=== PATIENT | female | born 1970 | race Caucasian/White ===

== ENCOUNTER 2020-02-12 14:35 | Inpatient (IN) | payer MEDICARE, OTHER ==
[2020-02-12] MEDS: Ascorbic Acid 500 mg Chewable Tablet PO SCH (21:18)
[2020-02-12] MEDS: busPIRone HCl 5 MG TAB PO SCH (21:18)
[2020-02-12] MEDS: Diazepam 5 MG TAB PO SCH (21:19)
[2020-02-12] MEDS: Gabapentin 300 MG CAP PO SCH (21:20)
[2020-02-12] MEDS: levETIRAcetam 500 MG TAB PO SCH (21:20)
[2020-02-12] MEDS: Senokot 8.6 MG TAB PO SCH (21:20)
[2020-02-12] MEDS: traZODone HCl 50 MG TAB PO SCH (21:21)
[2020-02-12] MEDS: HYDROcodone/Acetaminophen 10/325 mg Tablet PO SCH ×2 (23:53→23:59)
[2020-02-13] MEDS: Cyclobenzaprine 10 MG TAB PO PRN ×3 (00:41→14:37)
[2020-02-13 04:37] LABS: Bilirubin Negative (Negative); Blood, Urine Negative (Negative); Clarity Clear (Clear); Glucose, Urine (Dipstick) Negative (Negative); Ketone, Urine Negative (Negative); Leukocyte Small (Negative); Nitrite Negative (Negative); Protein, Urine (Dipstick) Negative (Neg-Trace); Specific Gravity, Urine 1.015 (1.005-1.030); pH, Urine 7.5 (5.0-9.0)
[2020-02-13 04:44] LABS: Bacteria/HPF None Seen HPF (None Seen); RBC/HPF 0-3 HPF (0-3); Squamous Epithelial 0-3 HPF (0-3); WBC/HPF 0-3 HPF (0-3)
[2020-02-13] MEDS: HYDROcodone/Acetaminophen 10/325 mg Tablet PO SCH ×3 (05:57→17:49)
[2020-02-13 06:08] LABS: Hemoglobin 9.2 g/dL (12.0-16.0); Platelet Count 383 thou/uL (130-400)
[2020-02-13 06:21] LABS: ALT (SGPT) 146 U/L (8-55); AST (SGOT) 127 U/L (5-34); Albumin 3.1 g/dL (3.5-5.0); Alkaline Phosphatase 239 U/L (40-110); Anion Gap 9 mmol/L (10-20); BUN (Urea Nitrogen) 12 mg/dL (7.0-18.7); Bilirubin, Total 1.8 mg/dL (0.2-1.2); Calc. Creatinine Clearance 121 mL/min (70-130); Calcium 8.5 mg/dL (7.8-10.44); Carbon Dioxide 28 mmol/L (22-29); Chloride 105 mmol/L (98-107); Estimated GFR-MDRD Greater than 90; Globulin 2.7 g/dL (2.4-3.5); Glucose 94 mg/dL (70-105); Potassium 4.2 mmol/L (3.5-5.1); Protein, Total 5.8 g/dL (6.0-8.3); Sodium 138 mmol/L (136-145)
[2020-02-13] MEDS: levETIRAcetam 500 MG TAB PO SCH ×2 (08:17→21:43)
[2020-02-13] MEDS: Diazepam 5 MG TAB PO SCH ×2 (08:17→21:40)
[2020-02-13] MEDS: busPIRone HCl 5 MG TAB PO SCH ×3 (08:18→21:42)
[2020-02-13] MEDS: Senokot 8.6 MG TAB PO SCH ×2 (08:18→21:43)
[2020-02-13] MEDS: Ferrous Sulfate 325 MG TAB PO SCH ×2 (08:18→17:04)
[2020-02-13] MEDS: Gabapentin 300 MG CAP PO SCH ×3 (08:19→21:42)
[2020-02-13] MEDS: Ascorbic Acid 500 mg Chewable Tablet PO SCH ×2 (08:19→21:41)
[2020-02-13] MEDS: Enoxaparin Sodium 40 MG/0.4 ML SYRINGE SC SCH (08:19)
[2020-02-13] MEDS: ATOMOXETINE HCL 40 MG PO SCH (08:20)
[2020-02-13] MEDS: Bisacodyl 10 MG SUPP PR SCH (08:20)
[2020-02-13] MEDS: Polyethylene Glycol 3350 17 GM Packet PO SCH (08:21)
[2020-02-13] MEDS: Nitrofurantoin Macrocrystal 50 MG CAP PO SCH (08:33)
[2020-02-13] MEDS: Ibuprofen 800 MG TAB PO PRN ×2 (11:01→21:40)
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
[2020-02-13] MEDS: traZODone HCl 50 MG TAB PO SCH (21:43)
[2020-02-13] MEDS: Emollient 15 oz bottle 450 ML, Triamcinolone Acetonide 200 MG TOP PRN (21:45)
[2020-02-13] MEDS ORDERED: Loratadine 10 MG TAB PO SCH (21:45)
[2020-02-14] MEDS: HYDROcodone/Acetaminophen 10/325 mg Tablet PO SCH ×5 (00:49→23:50)
[2020-02-14] MEDS: levETIRAcetam 500 MG TAB PO SCH ×2 (08:12→20:54)
[2020-02-14] MEDS: Cyclobenzaprine 10 MG TAB PO PRN ×3 (08:12→23:50)
[2020-02-14] MEDS: busPIRone HCl 5 MG TAB PO SCH ×3 (08:12→20:55)
[2020-02-14] MEDS: Ferrous Sulfate 325 MG TAB PO SCH ×2 (08:13→16:48)
[2020-02-14] MEDS: Diazepam 5 MG TAB PO SCH ×2 (08:13→20:55)
[2020-02-14] MEDS: Gabapentin 300 MG CAP PO SCH ×3 (08:13→20:54)
[2020-02-14] MEDS: Senokot 8.6 MG TAB PO SCH ×2 (08:13→21:03)
[2020-02-14] MEDS: Ascorbic Acid 500 mg Chewable Tablet PO SCH ×2 (08:13→20:55)
[2020-02-14] MEDS: Loratadine 10 MG TAB PO SCH (08:13)
[2020-02-14] MEDS: Nitrofurantoin Macrocrystal 50 MG CAP PO SCH (08:13)
[2020-02-14] MEDS: Bisacodyl 10 MG SUPP PR SCH (08:14)
[2020-02-14] MEDS: Enoxaparin Sodium 40 MG/0.4 ML SYRINGE SC SCH (08:15)
[2020-02-14] MEDS: ATOMOXETINE HCL 40 MG PO SCH (08:15)
[2020-02-14] MEDS: Polyethylene Glycol 3350 17 GM Packet PO SCH (08:16)
[2020-02-14] MEDS: Emollient 15 oz bottle 450 ML, Triamcinolone Acetonide 200 MG TOP PRN (10:25)
[2020-02-14] MEDS: Ibuprofen 800 MG TAB PO PRN (16:48)
[2020-02-14] MEDS: traZODone HCl 50 MG TAB PO SCH (20:53)
[2020-02-15] MEDS: Ibuprofen 800 MG TAB PO PRN ×2 (05:16→21:33)
[2020-02-15] MEDS: HYDROcodone/Acetaminophen 10/325 mg Tablet PO SCH ×4 (06:00→23:40)
[2020-02-15 06:22] LABS: Hemoglobin 9.3 g/dL (12.0-16.0)
[2020-02-15] MEDS: Senokot 8.6 MG TAB PO SCH ×2 (08:48→21:35)
[2020-02-15] MEDS: Nitrofurantoin Macrocrystal 50 MG CAP PO SCH (08:48)
[2020-02-15] MEDS: Ferrous Sulfate 325 MG TAB PO SCH ×2 (08:48→17:44)
[2020-02-15] MEDS: Loratadine 10 MG TAB PO SCH (08:49)
[2020-02-15] MEDS: busPIRone HCl 5 MG TAB PO SCH ×3 (08:49→21:34)
[2020-02-15] MEDS: Gabapentin 300 MG CAP PO SCH ×4 (08:49→21:41)
[2020-02-15] MEDS: Ascorbic Acid 500 mg Chewable Tablet PO SCH ×2 (08:49→21:34)
[2020-02-15] MEDS: Polyethylene Glycol 3350 17 GM Packet PO SCH (08:50)
[2020-02-15] MEDS: levETIRAcetam 500 MG TAB PO SCH ×2 (08:50→21:33)
[2020-02-15] MEDS: Enoxaparin Sodium 40 MG/0.4 ML SYRINGE SC SCH (08:50)
[2020-02-15] MEDS: Bisacodyl 10 MG SUPP PR SCH (08:51)
[2020-02-15] MEDS: Diazepam 5 MG TAB PO SCH ×2 (08:57→21:32)
[2020-02-15] MEDS: ATOMOXETINE HCL 40 MG PO SCH (08:58)
[2020-02-15] MEDS ORDERED: HYDROcodone/Acetaminophen 10/325 mg Tablet PO SCH (11:30)
[2020-02-15] MEDS ORDERED: HYDROcodone/Acetaminophen 10/325 mg Tablet PO PRN (12:00)
[2020-02-15] MEDS ORDERED: Triamcinolone 0.1% Cream 15 GM TUBE TOP PRN (13:11)
[2020-02-15] MEDS: Cyclobenzaprine 10 MG TAB PO PRN (16:03)
[2020-02-15] MEDS: traZODone HCl 50 MG TAB PO SCH (21:33)
[2020-02-15] MEDS: hydrOXYzine 25 MG TAB PO PRN (21:38)
[2020-02-15] MEDS: Emollient 15 oz bottle 450 ML, Triamcinolone Acetonide 200 MG TOP PRN (21:41)
[2020-02-16] MEDS: HYDROcodone/Acetaminophen 10/325 mg Tablet PO SCH ×3 (05:14→18:09)
[2020-02-16 05:54] LABS: Hemoglobin 9.2 g/dL (12.0-16.0); Platelet Count 654 thou/uL (130-400)
[2020-02-16] MEDS: busPIRone HCl 5 MG TAB PO SCH ×3 (08:12→21:59)
[2020-02-16] MEDS: Nitrofurantoin Macrocrystal 50 MG CAP PO SCH (08:13)
[2020-02-16] MEDS: Ascorbic Acid 500 mg Chewable Tablet PO SCH ×2 (08:13→21:59)
[2020-02-16] MEDS: levETIRAcetam 500 MG TAB PO SCH ×2 (08:13→22:00)
[2020-02-16] MEDS: Diazepam 5 MG TAB PO SCH ×2 (08:13→21:59)
[2020-02-16] MEDS: Senokot 8.6 MG TAB PO SCH ×3 (08:13→22:02)
[2020-02-16] MEDS: ATOMOXETINE HCL 40 MG PO SCH (08:14)
[2020-02-16] MEDS: Gabapentin 300 MG CAP PO SCH ×3 (08:14→22:01)
[2020-02-16] MEDS: Ferrous Sulfate 325 MG TAB PO SCH ×2 (08:14→16:59)
[2020-02-16] MEDS: Enoxaparin Sodium 40 MG/0.4 ML SYRINGE SC SCH (08:14)
[2020-02-16] MEDS: Cyclobenzaprine 10 MG TAB PO PRN ×2 (08:14→15:22)
[2020-02-16] MEDS: hydrOXYzine 25 MG TAB PO PRN (09:59)
[2020-02-16] MEDS: HYDROcodone/Acetaminophen 10/325 mg Tablet PO PRN ×2 (09:59→16:58)
[2020-02-16] MEDS: traZODone HCl 50 MG TAB PO SCH (22:02)
[2020-02-16] MEDS: Ibuprofen 800 MG TAB PO PRN (22:03)
[2020-02-16] MEDS: Emollient 15 oz bottle 450 ML, Triamcinolone Acetonide 200 MG TOP PRN (22:08)
[2020-02-17] MEDS: HYDROcodone/Acetaminophen 10/325 mg Tablet PO PRN ×4 (00:58→20:54)
[2020-02-17] MEDS: Cyclobenzaprine 10 MG TAB PO PRN ×2 (05:08→15:40)
[2020-02-17] MEDS: busPIRone HCl 5 MG TAB PO SCH ×2 (07:54→15:31)
[2020-02-17] MEDS: levETIRAcetam 500 MG TAB PO SCH ×2 (07:55→20:53)
[2020-02-17] MEDS: Nitrofurantoin Macrocrystal 50 MG CAP PO SCH (07:56)
[2020-02-17] MEDS: Enoxaparin Sodium 40 MG/0.4 ML SYRINGE SC SCH (07:56)
[2020-02-17] MEDS: Diazepam 5 MG TAB PO SCH ×2 (07:56→20:52)
[2020-02-17] MEDS: Ferrous Sulfate 325 MG TAB PO SCH ×2 (07:56→16:56)
[2020-02-17] MEDS: Senokot 8.6 MG TAB PO SCH ×2 (07:56→20:53)
[2020-02-17] MEDS: Ascorbic Acid 500 mg Chewable Tablet PO SCH ×2 (07:57→20:52)
[2020-02-17] MEDS: ATOMOXETINE HCL 40 MG PO SCH (07:58)
[2020-02-17] MEDS ORDERED: Hyoscyamine Sulfate SL 0.125 mg Tablet SL PRN (17:26)
[2020-02-17] MEDS: traZODone HCl 50 MG TAB PO SCH (20:53)
[2020-02-17] MEDS: Betamethasone 0.1% Cream 15 GM TUBE TOP PRN (20:56)
[2020-02-17] MEDS: Emollient 15 oz bottle 450 ML, Triamcinolone Acetonide 200 MG TOP PRN (20:57)
[2020-02-18] MEDS: Cyclobenzaprine 10 MG TAB PO PRN ×3 (06:08→23:10)
[2020-02-18] MEDS: Diazepam 5 MG TAB PO SCH ×2 (07:26→20:06)
[2020-02-18] MEDS: Senokot 8.6 MG TAB PO SCH ×2 (07:26→20:06)
[2020-02-18] MEDS: levETIRAcetam 500 MG TAB PO SCH ×2 (07:27→20:06)
[2020-02-18] MEDS: Nitrofurantoin Macrocrystal 50 MG CAP PO SCH (07:27)
[2020-02-18] MEDS: HYDROcodone/Acetaminophen 10/325 mg Tablet PO PRN ×3 (07:27→20:11)
[2020-02-18] MEDS: Ferrous Sulfate 325 MG TAB PO SCH ×2 (07:27→16:56)
[2020-02-18] MEDS: Ascorbic Acid 500 mg Chewable Tablet PO SCH ×2 (07:28→20:06)
[2020-02-18] MEDS: Enoxaparin Sodium 40 MG/0.4 ML SYRINGE SC SCH (07:28)
[2020-02-18] MEDS: ATOMOXETINE HCL 40 MG PO SCH (08:32)
[2020-02-18] MEDS: hydrOXYzine 25 MG TAB PO PRN (11:05)
[2020-02-18] MEDS: traZODone HCl 50 MG TAB PO SCH (20:05)
[2020-02-18 20:06] LABS: Anion Gap 13 mmol/L (10-20); BUN (Urea Nitrogen) 11 mg/dL (7.0-18.7); Carbon Dioxide 27 mmol/L (22-29); Chloride 105 mmol/L (98-107); Potassium 3.9 mmol/L (3.5-5.1); Sodium 141 mmol/L (136-145)
[2020-02-18 20:07] LABS: ALT (SGPT) 113 U/L (8-55); AST (SGOT) 64 U/L (5-34); Albumin 3.5 g/dL (3.5-5.0); Alkaline Phosphatase 408 U/L (40-110); Bilirubin, Total 1.2 mg/dL (0.2-1.2); Calc. Creatinine Clearance 121 mL/min (70-130); Calcium 9.1 mg/dL (7.8-10.44); Estimated GFR-MDRD Greater than 90; Globulin 3.1 g/dL (2.4-3.5); Glucose 103 mg/dL (70-105); Protein, Total 6.6 g/dL (6.0-8.3)
[2020-02-18 20:20] LABS: Band 4 % (5-11); Eosinophils 6 % (0-10); Hemoglobin 9.1 g/dL (12.0-16.0); Lymphocytes 18 % (21-51); MDiff Complete? YES; Mean Corpuscular HGB CONC 30.6 g/dL (32.0-36.0); Mean Corpuscular Hemoglobin 30.4 pg (27.0-31.0); Mean Corpuscular Volume 99.6 fL (78.0-98.0); Mean Platelet Volume 5.4 fL (7.4-10.4); Monocytes 4 % (0-10); Myelocyte 1 % (0-0); Neutrophil 65 % (42-75); Platelet Count 790 thou/uL (130-400); Platelet Morphology Comment Appears Increased; RBC Distribution Width 16.6 % (11.5-14.5); RBC Morphology Normal; Reactive Lymphocytes 2 % (0-10); White Blood Cell (WBC) Count 6.2 thou/uL (4.8-10.8)
[2020-02-18 21:35] LABS: Bilirubin Negative (Negative); Blood, Urine Negative (Negative); Clarity Clear (Clear); Glucose, Urine (Dipstick) Negative (Negative); Ketone, Urine Negative (Negative); Leukocyte Negative (Negative); Nitrite Negative (Negative); Protein, Urine (Dipstick) Negative (Neg-Trace); Specific Gravity, Urine 1.015 (1.005-1.030)
[2020-02-18 21:42] LABS: Urine Culture Reflex No No
[2020-02-18 21:47] LABS: Bacteria/HPF Rare-Few HPF (None Seen); RBC/HPF 0-3 HPF (0-3); Squamous Epithelial 0-3 HPF (0-3); WBC/HPF 0-3 HPF (0-3)
[2020-02-18] MEDS: Melatonin 3 MG TAB PO PRN (23:10)
[2020-02-19] MEDS: HYDROcodone/Acetaminophen 10/325 mg Tablet PO PRN ×3 (02:44→14:28)
[2020-02-19] MEDS: Nitrofurantoin Macrocrystal 50 MG CAP PO SCH (09:03)
[2020-02-19] MEDS: Ferrous Sulfate 325 MG TAB PO SCH ×2 (09:03→17:18)
[2020-02-19] MEDS: Senokot 8.6 MG TAB PO SCH ×2 (09:03→20:19)
[2020-02-19] MEDS: Ascorbic Acid 500 mg Chewable Tablet PO SCH ×2 (09:03→20:17)
[2020-02-19] MEDS: Diazepam 5 MG TAB PO SCH ×2 (09:03→20:16)
[2020-02-19] MEDS: levETIRAcetam 500 MG TAB PO SCH ×2 (09:04→20:17)
[2020-02-19] MEDS: Cyclobenzaprine 10 MG TAB PO PRN ×2 (09:04→21:50)
[2020-02-19] MEDS: Enoxaparin Sodium 40 MG/0.4 ML SYRINGE SC SCH (09:04)
[2020-02-19] MEDS: ATOMOXETINE HCL 40 MG PO SCH (09:05)
[2020-02-19 14:24] LABS: SARS-CoV-2 MS2 Positive; SARS-CoV-2 N Gene Negative; SARS-CoV-2 S Gene Negative; SARS-CoV-2 by NAA Not Detected (NotDetected); SARS-CoV-2 orf1ab Negative
[2020-02-19] MEDS: Ibuprofen 800 MG TAB PO PRN (14:28)
[2020-02-19] MEDS: traZODone HCl 50 MG TAB PO SCH (20:18)
[2020-02-20] MEDS: HYDROcodone/Acetaminophen 10/325 mg Tablet PO PRN ×3 (02:45→14:35)
[2020-02-20] MEDS: Ibuprofen 800 MG TAB PO PRN ×2 (06:05→19:26)
[2020-02-20] MEDS: levETIRAcetam 500 MG TAB PO SCH ×2 (08:33→20:54)
[2020-02-20] MEDS: Senokot 8.6 MG TAB PO SCH ×2 (08:33→20:57)
[2020-02-20] MEDS: Ascorbic Acid 500 mg Chewable Tablet PO SCH ×2 (08:33→20:56)
[2020-02-20] MEDS: Nitrofurantoin Macrocrystal 50 MG CAP PO SCH (08:33)
[2020-02-20] MEDS: Diazepam 5 MG TAB PO SCH ×2 (08:33→20:53)
[2020-02-20] MEDS: Ferrous Sulfate 325 MG TAB PO SCH ×2 (08:33→17:17)
[2020-02-20] MEDS: ATOMOXETINE HCL 40 MG PO SCH (08:34)
[2020-02-20] MEDS: Enoxaparin Sodium 40 MG/0.4 ML SYRINGE SC SCH (08:35)
[2020-02-20] MEDS: hydrOXYzine 25 MG TAB PO PRN (10:44)
[2020-02-20] MEDS: Cyclobenzaprine 10 MG TAB PO PRN (13:18)
[2020-02-20] MEDS: traZODone HCl 50 MG TAB PO SCH (20:55)
[2020-02-21] MEDS: HYDROcodone/Acetaminophen 10/325 mg Tablet PO PRN ×4 (00:11→20:47)
[2020-02-21] MEDS: Ibuprofen 800 MG TAB PO PRN ×2 (02:58→17:05)
[2020-02-21] MEDS: Cyclobenzaprine 10 MG TAB PO PRN ×3 (02:59→23:35)
[2020-02-21] MEDS: ATOMOXETINE HCL 40 MG PO SCH (08:50)
[2020-02-21] MEDS: Ascorbic Acid 500 mg Chewable Tablet PO SCH ×2 (08:52→20:45)
[2020-02-21] MEDS: Senokot 8.6 MG TAB PO SCH ×2 (08:52→20:47)
[2020-02-21] MEDS: Nitrofurantoin Macrocrystal 50 MG CAP PO SCH (08:52)
[2020-02-21] MEDS: Ferrous Sulfate 325 MG TAB PO SCH ×2 (08:52→17:05)
[2020-02-21] MEDS: Diazepam 5 MG TAB PO SCH ×2 (08:52→20:45)
[2020-02-21] MEDS: hydrOXYzine 25 MG TAB PO PRN ×2 (08:52→20:55)
[2020-02-21] MEDS: levETIRAcetam 500 MG TAB PO SCH ×2 (08:53→20:46)
[2020-02-21] MEDS: Enoxaparin Sodium 40 MG/0.4 ML SYRINGE SC SCH (08:54)
[2020-02-21] MEDS: Nystatin Cream 15 GM TUBE TOP SCH (20:46)
[2020-02-21] MEDS: traZODone HCl 50 MG TAB PO SCH (20:47)
[2020-02-22] MEDS: HYDROcodone/Acetaminophen 10/325 mg Tablet PO PRN ×3 (07:23→19:49)
[2020-02-22] MEDS: Ferrous Sulfate 325 MG TAB PO SCH ×2 (07:56→17:00)
[2020-02-22] MEDS: Diazepam 5 MG TAB PO SCH ×2 (08:35→21:09)
[2020-02-22] MEDS: Ascorbic Acid 500 mg Chewable Tablet PO SCH ×2 (08:35→21:08)
[2020-02-22] MEDS: Enoxaparin Sodium 40 MG/0.4 ML SYRINGE SC SCH (08:37)
[2020-02-22] MEDS: levETIRAcetam 500 MG TAB PO SCH ×2 (08:38→21:06)
[2020-02-22] MEDS: Nitrofurantoin Macrocrystal 50 MG CAP PO SCH (08:39)
[2020-02-22] MEDS: Nystatin Cream 15 GM TUBE TOP SCH ×2 (08:39→21:30)
[2020-02-22] MEDS: Senokot 8.6 MG TAB PO SCH ×2 (08:40→21:12)
[2020-02-22] MEDS: ATOMOXETINE HCL 40 MG PO SCH (08:43)
[2020-02-22] MEDS: Cyclobenzaprine 10 MG TAB PO PRN ×2 (10:37→17:41)
[2020-02-22] MEDS: Ibuprofen 800 MG TAB PO PRN ×2 (11:20→21:28)
[2020-02-22] MEDS: hydrOXYzine 25 MG TAB PO PRN (21:07)
[2020-02-22] MEDS: traZODone HCl 50 MG TAB PO SCH (21:12)
[2020-02-22] MEDS ORDERED: Ibuprofen 800 MG TAB ONE (21:25)
[2020-02-23] MEDS: HYDROcodone/Acetaminophen 10/325 mg Tablet PO PRN ×4 (02:28→20:57)
[2020-02-23] MEDS: levETIRAcetam 500 MG TAB PO SCH ×2 (08:03→20:59)
[2020-02-23] MEDS: Senokot 8.6 MG TAB PO SCH ×2 (08:03→20:59)
[2020-02-23] MEDS: Ferrous Sulfate 325 MG TAB PO SCH ×2 (08:03→17:05)
[2020-02-23] MEDS: Ibuprofen 800 MG TAB PO PRN ×2 (08:04→19:13)
[2020-02-23] MEDS: Diazepam 5 MG TAB PO SCH ×2 (08:05→21:01)
[2020-02-23] MEDS: Nitrofurantoin Macrocrystal 50 MG CAP PO SCH (08:05)
[2020-02-23] MEDS: Enoxaparin Sodium 40 MG/0.4 ML SYRINGE SC SCH (08:05)
[2020-02-23] MEDS: Ascorbic Acid 500 mg Chewable Tablet PO SCH ×2 (08:05→20:59)
[2020-02-23] MEDS: ATOMOXETINE HCL 40 MG PO SCH (08:06)
[2020-02-23] MEDS: Nystatin Cream 15 GM TUBE TOP SCH ×2 (08:06→21:01)
[2020-02-23] MEDS: Cyclobenzaprine 10 MG TAB PO PRN ×2 (09:37→19:13)
[2020-02-23] MEDS ORDERED: HYDROcodone/Acetaminophen 10/325 mg Tablet PO SCH (14:45)
[2020-02-23] MEDS: hydrOXYzine 25 MG TAB PO PRN (17:07)
[2020-02-23] MEDS: traZODone HCl 50 MG TAB PO SCH (20:59)
[2020-02-24] MEDS: HYDROcodone/Acetaminophen 10/325 mg Tablet PO PRN ×4 (02:43→22:02)
[2020-02-24] MEDS: Cyclobenzaprine 10 MG TAB PO PRN ×3 (02:46→20:06)
[2020-02-24] MEDS: Ibuprofen 800 MG TAB PO PRN ×2 (05:24→13:56)
[2020-02-24] MEDS: Enoxaparin Sodium 40 MG/0.4 ML SYRINGE SC SCH (08:02)
[2020-02-24] MEDS: Ferrous Sulfate 325 MG TAB PO SCH ×2 (08:03→16:52)
[2020-02-24] MEDS: Senokot 8.6 MG TAB PO SCH ×2 (08:03→20:09)
[2020-02-24] MEDS: Diazepam 5 MG TAB PO SCH ×2 (08:03→20:14)
[2020-02-24] MEDS: levETIRAcetam 500 MG TAB PO SCH ×2 (08:03→20:07)
[2020-02-24] MEDS: Ascorbic Acid 500 mg Chewable Tablet PO SCH ×2 (08:04→20:08)
[2020-02-24] MEDS: Nitrofurantoin Macrocrystal 50 MG CAP PO SCH (08:04)
[2020-02-24] MEDS: Nystatin Cream 15 GM TUBE TOP SCH ×2 (08:04→20:15)
[2020-02-24] MEDS: ATOMOXETINE HCL 40 MG PO SCH (08:05)
[2020-02-24] MEDS: hydrOXYzine 25 MG TAB PO PRN (13:56)
[2020-02-24] MEDS: traZODone HCl 50 MG TAB PO SCH (20:08)
[2020-02-25] MEDS: Ibuprofen 800 MG TAB PO PRN ×2 (01:05→08:52)
[2020-02-25] MEDS: HYDROcodone/Acetaminophen 10/325 mg Tablet PO PRN ×4 (05:49→20:48)
[2020-02-25] MEDS: Diazepam 5 MG TAB PO SCH ×2 (08:51→20:37)
[2020-02-25] MEDS: Senokot 8.6 MG TAB PO SCH ×2 (08:51→20:36)
[2020-02-25] MEDS: Enoxaparin Sodium 40 MG/0.4 ML SYRINGE SC SCH (08:51)
[2020-02-25] MEDS: Nitrofurantoin Macrocrystal 50 MG CAP PO SCH (08:51)
[2020-02-25] MEDS: Nystatin Cream 15 GM TUBE TOP SCH ×2 (08:52→21:12)
[2020-02-25] MEDS: levETIRAcetam 500 MG TAB PO SCH ×2 (08:52→20:36)
[2020-02-25] MEDS: Cyclobenzaprine 10 MG TAB PO PRN ×2 (08:52→22:52)
[2020-02-25] MEDS: Ferrous Sulfate 325 MG TAB PO SCH ×2 (08:52→17:40)
[2020-02-25] MEDS: Ascorbic Acid 500 mg Chewable Tablet PO SCH ×2 (08:52→20:36)
[2020-02-25] MEDS: ATOMOXETINE HCL 40 MG PO SCH (08:54)
[2020-02-25] MEDS: traZODone HCl 50 MG TAB PO SCH (20:36)
[2020-02-26] MEDS: HYDROcodone/Acetaminophen 10/325 mg Tablet PO PRN ×5 (02:24→21:19)
[2020-02-26] MEDS: Cyclobenzaprine 10 MG TAB PO PRN ×2 (06:28→14:35)
[2020-02-26] MEDS: Ferrous Sulfate 325 MG TAB PO SCH ×2 (07:56→17:21)
[2020-02-26] MEDS: Diazepam 5 MG TAB PO SCH ×2 (09:49→21:17)
[2020-02-26] MEDS: Ascorbic Acid 500 mg Chewable Tablet PO SCH ×2 (09:49→21:16)
[2020-02-26] MEDS: Enoxaparin Sodium 40 MG/0.4 ML SYRINGE SC SCH (09:50)
[2020-02-26] MEDS: Nitrofurantoin Macrocrystal 50 MG CAP PO SCH (09:51)
[2020-02-26] MEDS: levETIRAcetam 500 MG TAB PO SCH ×2 (09:51→21:17)
[2020-02-26] MEDS: ATOMOXETINE HCL 40 MG PO SCH (09:52)
[2020-02-26] MEDS: Senokot 8.6 MG TAB PO SCH ×2 (09:53→21:18)
[2020-02-26] MEDS: Nystatin Cream 15 GM TUBE TOP SCH ×2 (09:53→21:18)
[2020-02-26] MEDS: Ibuprofen 800 MG TAB PO PRN (17:21)
[2020-02-26] MEDS: traZODone HCl 50 MG TAB PO SCH (21:18)
[2020-02-27] MEDS: Cyclobenzaprine 10 MG TAB PO PRN ×2 (01:01→16:32)
[2020-02-27] MEDS: Ibuprofen 800 MG TAB PO PRN (01:01)
[2020-02-27] MEDS: HYDROcodone/Acetaminophen 10/325 mg Tablet PO PRN ×4 (06:19→20:51)
[2020-02-27] MEDS: levETIRAcetam 500 MG TAB PO SCH ×2 (08:08→22:13)
[2020-02-27] MEDS: Nitrofurantoin Macrocrystal 50 MG CAP PO SCH (08:08)
[2020-02-27] MEDS: Senokot 8.6 MG TAB PO SCH ×2 (08:08→22:14)
[2020-02-27] MEDS: Ferrous Sulfate 325 MG TAB PO SCH ×2 (08:08→16:33)
[2020-02-27] MEDS: Ascorbic Acid 500 mg Chewable Tablet PO SCH ×2 (08:08→22:13)
[2020-02-27] MEDS: Diazepam 5 MG TAB PO SCH ×2 (08:09→22:14)
[2020-02-27] MEDS: Nystatin Cream 15 GM TUBE TOP SCH ×2 (08:09→22:17)
[2020-02-27] MEDS: Enoxaparin Sodium 40 MG/0.4 ML SYRINGE SC SCH (08:09)
[2020-02-27] MEDS: ATOMOXETINE HCL 40 MG PO SCH (08:10)
[2020-02-27] MEDS: traZODone HCl 50 MG TAB PO SCH (22:13)
[2020-02-28] MEDS: HYDROcodone/Acetaminophen 10/325 mg Tablet PO PRN ×6 (00:38→20:35)
[2020-02-28] MEDS: Cyclobenzaprine 10 MG TAB PO PRN ×2 (00:39→12:13)
[2020-02-28] MEDS: Ibuprofen 800 MG TAB PO PRN ×2 (04:34→16:16)
[2020-02-28] MEDS: Diazepam 5 MG TAB PO SCH ×2 (08:17→21:45)
[2020-02-28] MEDS: ATOMOXETINE HCL 40 MG PO SCH (08:17)
[2020-02-28] MEDS: Nitrofurantoin Macrocrystal 50 MG CAP PO SCH (08:18)
[2020-02-28] MEDS: Ferrous Sulfate 325 MG TAB PO SCH ×2 (08:18→16:15)
[2020-02-28] MEDS: levETIRAcetam 500 MG TAB PO SCH ×2 (08:18→21:44)
[2020-02-28] MEDS: Enoxaparin Sodium 40 MG/0.4 ML SYRINGE SC SCH (08:19)
[2020-02-28] MEDS: Ascorbic Acid 500 mg Chewable Tablet PO SCH ×2 (08:19→21:44)
[2020-02-28] MEDS: Senokot 8.6 MG TAB PO SCH ×2 (08:19→21:44)
[2020-02-28] MEDS: Nystatin Cream 15 GM TUBE TOP SCH ×2 (08:20→21:51)
[2020-02-28] MEDS: traZODone HCl 50 MG TAB PO SCH (21:44)
[2020-02-29] MEDS: Cyclobenzaprine 10 MG TAB PO PRN ×3 (00:36→16:38)
[2020-02-29] MEDS: HYDROcodone/Acetaminophen 10/325 mg Tablet PO PRN ×6 (00:36→20:42)
[2020-02-29] MEDS: Ibuprofen 800 MG TAB PO PRN (04:48)
[2020-02-29] MEDS: Ferrous Sulfate 325 MG TAB PO SCH ×2 (07:40→16:38)
[2020-02-29] MEDS: Diazepam 5 MG TAB PO SCH ×2 (08:43→21:38)
[2020-02-29] MEDS: Ascorbic Acid 500 mg Chewable Tablet PO SCH ×2 (08:43→21:38)
[2020-02-29] MEDS: Enoxaparin Sodium 40 MG/0.4 ML SYRINGE SC SCH (08:44)
[2020-02-29] MEDS: levETIRAcetam 500 MG TAB PO SCH ×2 (08:44→21:38)
[2020-02-29] MEDS: Nitrofurantoin Macrocrystal 50 MG CAP PO SCH (08:45)
[2020-02-29] MEDS: Nystatin Cream 15 GM TUBE TOP SCH ×2 (08:46→21:41)
[2020-02-29] MEDS: ATOMOXETINE HCL 40 MG PO SCH (08:46)
[2020-02-29] MEDS: Senokot 8.6 MG TAB PO SCH ×2 (08:47→21:39)
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
[2020-02-29] MEDS: traZODone HCl 50 MG TAB PO SCH (21:38)
[2020-03-01] MEDS: HYDROcodone/Acetaminophen 10/325 mg Tablet PO PRN ×6 (00:31→22:54)
[2020-03-01] MEDS: Cyclobenzaprine 10 MG TAB PO PRN ×3 (00:33→18:23)
[2020-03-01] MEDS: Ibuprofen 800 MG TAB PO PRN (04:33)
[2020-03-01] MEDS: Ferrous Sulfate 325 MG TAB PO SCH ×2 (08:11→16:43)
[2020-03-01] MEDS: Diazepam 5 MG TAB PO SCH ×2 (08:12→20:27)
[2020-03-01] MEDS: Ascorbic Acid 500 mg Chewable Tablet PO SCH ×2 (08:12→20:26)
[2020-03-01] MEDS: Enoxaparin Sodium 40 MG/0.4 ML SYRINGE SC SCH (08:13)
[2020-03-01] MEDS: levETIRAcetam 500 MG TAB PO SCH ×2 (08:13→20:27)
[2020-03-01] MEDS: Nystatin Cream 15 GM TUBE TOP SCH ×2 (08:14→20:28)
[2020-03-01] MEDS: ATOMOXETINE HCL 40 MG PO SCH (08:14)
[2020-03-01] MEDS: Nitrofurantoin Macrocrystal 50 MG CAP PO SCH (08:14)
[2020-03-01] MEDS: Senokot 8.6 MG TAB PO SCH ×2 (08:15→20:29)
[2020-03-01] MEDS: Polyethylene Glycol 3350 17 GM Packet PO PRN (11:33)
[2020-03-01] MEDS: traZODone HCl 50 MG TAB PO SCH (20:29)
[2020-03-02] MEDS: Polyethylene Glycol 3350 17 GM Packet PO PRN (00:27)
[2020-03-02] MEDS: Cyclobenzaprine 10 MG TAB PO PRN ×3 (05:52→22:23)
[2020-03-02] MEDS: HYDROcodone/Acetaminophen 10/325 mg Tablet PO PRN ×5 (05:53→22:22)
[2020-03-02] MEDS: levETIRAcetam 500 MG TAB PO SCH ×2 (08:15→20:58)
[2020-03-02] MEDS: Ferrous Sulfate 325 MG TAB PO SCH ×2 (08:16→17:04)
[2020-03-02] MEDS: Diazepam 5 MG TAB PO SCH ×2 (08:16→20:59)
[2020-03-02] MEDS: Ascorbic Acid 500 mg Chewable Tablet PO SCH ×2 (08:16→20:59)
[2020-03-02] MEDS: Nitrofurantoin Macrocrystal 50 MG CAP PO SCH (08:16)
[2020-03-02] MEDS: Enoxaparin Sodium 40 MG/0.4 ML SYRINGE SC SCH (08:17)
[2020-03-02] MEDS: Nystatin Cream 15 GM TUBE TOP SCH ×2 (08:17→21:00)
[2020-03-02] MEDS: Senokot 8.6 MG TAB PO SCH ×2 (08:17→20:59)
[2020-03-02] MEDS: ATOMOXETINE HCL 40 MG PO SCH (08:18)
[2020-03-02] MEDS: Ibuprofen 800 MG TAB PO PRN (10:08)
[2020-03-02] MEDS: traZODone HCl 50 MG TAB PO SCH (20:59)
[2020-03-03] MEDS: HYDROcodone/Acetaminophen 10/325 mg Tablet PO PRN ×6 (02:15→22:10)
[2020-03-03] MEDS: Cyclobenzaprine 10 MG TAB PO PRN ×3 (06:01→22:14)
[2020-03-03] MEDS: levETIRAcetam 500 MG TAB PO SCH ×2 (08:57→21:00)
[2020-03-03] MEDS: Ascorbic Acid 500 mg Chewable Tablet PO SCH ×2 (08:57→20:59)
[2020-03-03] MEDS: Senokot 8.6 MG TAB PO SCH ×2 (08:57→19:45)
[2020-03-03] MEDS: Diazepam 5 MG TAB PO SCH ×2 (08:58→21:05)
[2020-03-03] MEDS: Nitrofurantoin Macrocrystal 50 MG CAP PO SCH (08:58)
[2020-03-03] MEDS: Ferrous Sulfate 325 MG TAB PO SCH ×2 (08:58→16:51)
[2020-03-03] MEDS: Nystatin Cream 15 GM TUBE TOP SCH ×2 (08:59→21:01)
[2020-03-03] MEDS: Betamethasone 0.1% Cream 15 GM TUBE TOP PRN (08:59)
[2020-03-03] MEDS: ATOMOXETINE HCL 40 MG PO SCH (08:59)
[2020-03-03] MEDS: Enoxaparin Sodium 40 MG/0.4 ML SYRINGE SC SCH (08:59)
[2020-03-03] MEDS: Ibuprofen 800 MG TAB PO PRN (10:06)
[2020-03-03] MEDS: Polyethylene Glycol 3350 17 GM Packet PO PRN (19:52)
[2020-03-03] MEDS: traZODone HCl 50 MG TAB PO SCH (21:00)
[2020-03-04] MEDS: HYDROcodone/Acetaminophen 10/325 mg Tablet PO PRN ×6 (02:17→22:14)
[2020-03-04] MEDS: Cyclobenzaprine 10 MG TAB PO PRN ×3 (06:16→22:13)
[2020-03-04] MEDS: Ibuprofen 800 MG TAB PO PRN ×2 (08:48→19:47)
[2020-03-04] MEDS: Nitrofurantoin Macrocrystal 50 MG CAP PO SCH (08:48)
[2020-03-04] MEDS: Ferrous Sulfate 325 MG TAB PO SCH ×2 (08:48→17:43)
[2020-03-04] MEDS: Diazepam 5 MG TAB PO SCH ×2 (08:48→21:16)
[2020-03-04] MEDS: Senokot 8.6 MG TAB PO SCH ×2 (08:48→21:16)
[2020-03-04] MEDS: Ascorbic Acid 500 mg Chewable Tablet PO SCH ×2 (08:52→21:17)
[2020-03-04] MEDS: Enoxaparin Sodium 40 MG/0.4 ML SYRINGE SC SCH (08:52)
[2020-03-04] MEDS: levETIRAcetam 500 MG TAB PO SCH ×2 (08:52→21:15)
[2020-03-04] MEDS: Nystatin Cream 15 GM TUBE TOP SCH ×2 (08:53→21:18)
[2020-03-04] MEDS: ATOMOXETINE HCL 40 MG PO SCH (08:54)
[2020-03-04] MEDS: traZODone HCl 50 MG TAB PO SCH (21:15)
[2020-03-05] MEDS: HYDROcodone/Acetaminophen 10/325 mg Tablet PO PRN ×5 (02:15→23:15)
[2020-03-05] MEDS: Diazepam 5 MG TAB PO SCH ×2 (08:23→21:08)
[2020-03-05] MEDS: Nitrofurantoin Macrocrystal 50 MG CAP PO SCH (08:25)
[2020-03-05] MEDS: Ferrous Sulfate 325 MG TAB PO SCH ×2 (08:25→17:37)
[2020-03-05] MEDS: levETIRAcetam 500 MG TAB PO SCH ×2 (08:25→21:06)
[2020-03-05] MEDS: Enoxaparin Sodium 40 MG/0.4 ML SYRINGE SC SCH (08:25)
[2020-03-05] MEDS: Cyclobenzaprine 10 MG TAB PO PRN ×2 (08:25→23:18)
[2020-03-05] MEDS: Ascorbic Acid 500 mg Chewable Tablet PO SCH ×2 (08:25→21:10)
[2020-03-05] MEDS: Senokot 8.6 MG TAB PO SCH ×2 (08:25→21:07)
[2020-03-05] MEDS: Nystatin Cream 15 GM TUBE TOP SCH ×2 (08:26→21:16)
[2020-03-05] MEDS: ATOMOXETINE HCL 40 MG PO SCH (08:28)
[2020-03-05] MEDS: traZODone HCl 50 MG TAB PO SCH (21:09)
[2020-03-05] MEDS: Polyethylene Glycol 3350 17 GM Packet PO PRN (21:18)
[2020-03-06] MEDS: HYDROcodone/Acetaminophen 10/325 mg Tablet PO PRN ×4 (03:54→21:16)
[2020-03-06] MEDS: Ibuprofen 800 MG TAB PO PRN (05:53)
[2020-03-06] MEDS: Ferrous Sulfate 325 MG TAB PO SCH ×2 (09:37→17:08)
[2020-03-06] MEDS: levETIRAcetam 500 MG TAB PO SCH ×2 (09:38→21:15)
[2020-03-06] MEDS: Ascorbic Acid 500 mg Chewable Tablet PO SCH ×2 (09:38→21:15)
[2020-03-06] MEDS: Cyclobenzaprine 10 MG TAB PO PRN ×2 (09:38→21:16)
[2020-03-06] MEDS: Nitrofurantoin Macrocrystal 50 MG CAP PO SCH (09:38)
[2020-03-06] MEDS: Diazepam 5 MG TAB PO SCH ×2 (09:39→21:15)
[2020-03-06] MEDS: Enoxaparin Sodium 40 MG/0.4 ML SYRINGE SC SCH (09:40)
[2020-03-06] MEDS: Senokot 8.6 MG TAB PO SCH ×2 (09:45→21:14)
[2020-03-06] MEDS: ATOMOXETINE HCL 40 MG PO SCH (09:50)
[2020-03-06] MEDS: Nystatin Cream 15 GM TUBE TOP SCH ×2 (09:51→21:28)
[2020-03-06] MEDS: traZODone HCl 50 MG TAB PO SCH (21:15)
[2020-03-07] MEDS: HYDROcodone/Acetaminophen 10/325 mg Tablet PO PRN ×6 (01:09→23:56)
[2020-03-07] MEDS: Cyclobenzaprine 10 MG TAB PO PRN ×2 (05:44→14:31)
[2020-03-07 07:27] LABS: #Basophils 0.1 thou/uL (0.0-0.2); #Eosinphils 0.7 thou/uL (0.0-0.7); #Lymphocytes 1.2 thou/uL (1.20-3.40); #Monocytes 0.4 thou/uL (0.11-0.59); #Neutrophils 2.4 thou/uL (1.40-6.50); %Basophils 1.7 % (0.0-1.0); %Lymphocytes 24.8 % (21.0-51.0); %Monocytes 9.2 % (0.0-10.0); %Neutrophils 50.4 % (42.0-75.0); Hemoglobin 10.5 g/dL (12.0-16.0); Mean Corpuscular HGB CONC 32.6 g/dL (32.0-36.0); Mean Corpuscular Hemoglobin 31.3 pg (27.0-31.0); Platelet Count 219 thou/uL (130-400); Red Blood Cell (RBC) Count 3.36 mill/uL (4.20-5.40); White Blood Cell (WBC) Count 4.8 thou/uL (4.8-10.8)
[2020-03-07] MEDS: Ferrous Sulfate 325 MG TAB PO SCH ×2 (08:32→17:47)
[2020-03-07] MEDS: Diazepam 5 MG TAB PO SCH ×2 (08:33→21:12)
[2020-03-07] MEDS: Ascorbic Acid 500 mg Chewable Tablet PO SCH ×2 (08:33→21:11)
[2020-03-07] MEDS: levETIRAcetam 500 MG TAB PO SCH ×2 (08:34→21:12)
[2020-03-07] MEDS: Enoxaparin Sodium 40 MG/0.4 ML SYRINGE SC SCH (08:34)
[2020-03-07] MEDS: ATOMOXETINE HCL 40 MG PO SCH (08:35)
[2020-03-07] MEDS: Nystatin Cream 15 GM TUBE TOP SCH ×2 (08:35→21:13)
[2020-03-07] MEDS: Nitrofurantoin Macrocrystal 50 MG CAP PO SCH (08:35)
[2020-03-07] MEDS: Senokot 8.6 MG TAB PO SCH ×2 (08:36→21:11)
[2020-03-07] MEDS: traZODone HCl 50 MG TAB PO SCH (21:11)
[2020-03-07] MEDS: Ibuprofen 800 MG TAB PO PRN (23:56)
[2020-03-08] MEDS: Melatonin 3 MG TAB PO PRN ×2 (00:02→20:07)
[2020-03-08] MEDS: HYDROcodone/Acetaminophen 10/325 mg Tablet PO PRN ×4 (07:41→20:48)
[2020-03-08] MEDS: Cyclobenzaprine 10 MG TAB PO PRN ×2 (07:42→16:38)
[2020-03-08] MEDS: Ascorbic Acid 500 mg Chewable Tablet PO SCH ×2 (08:28→20:11)
[2020-03-08] MEDS: Senokot 8.6 MG TAB PO SCH ×2 (08:28→20:10)
[2020-03-08] MEDS: Diazepam 5 MG TAB PO SCH ×2 (08:28→20:07)
[2020-03-08] MEDS: Nitrofurantoin Macrocrystal 50 MG CAP PO SCH (08:28)
[2020-03-08] MEDS: levETIRAcetam 500 MG TAB PO SCH ×2 (08:28→20:10)
[2020-03-08] MEDS: ATOMOXETINE HCL 40 MG PO SCH (08:29)
[2020-03-08] MEDS: Ferrous Sulfate 325 MG TAB PO SCH ×2 (08:29→16:38)
[2020-03-08] MEDS: Enoxaparin Sodium 40 MG/0.4 ML SYRINGE SC SCH (08:30)
[2020-03-08] MEDS: Nystatin Cream 15 GM TUBE TOP SCH ×2 (08:30→20:11)
[2020-03-08] MEDS: Ibuprofen 800 MG TAB PO PRN ×2 (11:45→20:07)
[2020-03-08] MEDS: Polyethylene Glycol 3350 17 GM Packet PO PRN (20:08)
[2020-03-08] MEDS: traZODone HCl 50 MG TAB PO SCH (20:09)
[2020-03-09] MEDS: HYDROcodone/Acetaminophen 10/325 mg Tablet PO PRN ×5 (01:05→21:13)
[2020-03-09] MEDS: Cyclobenzaprine 10 MG TAB PO PRN ×3 (01:06→17:15)
[2020-03-09] MEDS: levETIRAcetam 500 MG TAB PO SCH ×2 (08:24→20:00)
[2020-03-09] MEDS: Senokot 8.6 MG TAB PO SCH ×2 (08:25→20:00)
[2020-03-09] MEDS: Diazepam 5 MG TAB PO SCH ×2 (08:25→19:59)
[2020-03-09] MEDS: Ferrous Sulfate 325 MG TAB PO SCH ×2 (08:26→17:15)
[2020-03-09] MEDS: Nitrofurantoin Macrocrystal 50 MG CAP PO SCH (08:26)
[2020-03-09] MEDS: Ascorbic Acid 500 mg Chewable Tablet PO SCH ×2 (08:26→20:00)
[2020-03-09] MEDS: ATOMOXETINE HCL 40 MG PO SCH (08:27)
[2020-03-09] MEDS: Enoxaparin Sodium 40 MG/0.4 ML SYRINGE SC SCH (08:27)
[2020-03-09] MEDS: Nystatin Cream 15 GM TUBE TOP SCH ×2 (08:28→20:01)
[2020-03-09] MEDS: Ibuprofen 800 MG TAB PO PRN (09:27)
[2020-03-09] MEDS: Polyethylene Glycol 3350 17 GM Packet PO PRN (17:18)
[2020-03-09] MEDS ORDERED: DULoxetine 30 MG CAP PO SCH (18:30)
[2020-03-09] MEDS: Lidocaine 5% Patch TD SCH (19:59)
[2020-03-09] MEDS: Polyethylene Glycol 3350 17 GM Packet PO SCH (20:00)
[2020-03-09] MEDS: traZODone HCl 50 MG TAB PO SCH (20:01)
[2020-03-10] MEDS: Melatonin 3 MG TAB PO PRN (01:17)
[2020-03-10] MEDS: HYDROcodone/Acetaminophen 10/325 mg Tablet PO PRN ×5 (01:17→22:24)
[2020-03-10] MEDS: Cyclobenzaprine 10 MG TAB PO PRN ×3 (01:17→18:09)
[2020-03-10] MEDS ORDERED: DULoxetine 30 MG CAP PO SCH (09:00)
[2020-03-10] MEDS ORDERED: Lidocaine 5% Patch TD SCH (09:00)
[2020-03-10] MEDS: Ferrous Sulfate 325 MG TAB PO SCH ×2 (09:29→17:19)
[2020-03-10] MEDS: Diazepam 5 MG TAB PO SCH ×2 (09:29→21:25)
[2020-03-10] MEDS: Ascorbic Acid 500 mg Chewable Tablet PO SCH ×2 (09:29→21:24)
[2020-03-10] MEDS: Senokot 8.6 MG TAB PO SCH ×2 (09:30→21:24)
[2020-03-10] MEDS: Nitrofurantoin Macrocrystal 50 MG CAP PO SCH (09:30)
[2020-03-10] MEDS: levETIRAcetam 500 MG TAB PO SCH ×2 (09:30→21:24)
[2020-03-10] MEDS: Enoxaparin Sodium 40 MG/0.4 ML SYRINGE SC SCH (09:31)
[2020-03-10] MEDS: Lidocaine Patch Removal TOP SCH (09:31)
[2020-03-10] MEDS: Polyethylene Glycol 3350 17 GM Packet PO SCH ×2 (09:31→21:26)
[2020-03-10] MEDS: Nystatin Cream 15 GM TUBE TOP SCH ×2 (09:32→21:26)
[2020-03-10] MEDS: ATOMOXETINE HCL 40 MG PO SCH (09:36)
[2020-03-10] MEDS ORDERED: Lidocaine Patch Removal TOP SCH (21:00)
[2020-03-10] MEDS: traZODone HCl 50 MG TAB PO SCH (21:24)
[2020-03-10] MEDS: Lidocaine 5% Patch TD SCH (21:25)
[2020-03-10] MEDS: Ibuprofen 800 MG TAB PO PRN (22:25)
[2020-03-11] MEDS: HYDROcodone/Acetaminophen 10/325 mg Tablet PO PRN ×5 (03:51→21:26)
[2020-03-11] MEDS: Ferrous Sulfate 325 MG TAB PO SCH ×2 (08:58→17:22)
[2020-03-11] MEDS: Ascorbic Acid 500 mg Chewable Tablet PO SCH ×2 (08:58→20:25)
[2020-03-11] MEDS: Diazepam 5 MG TAB PO SCH ×2 (08:58→20:26)
[2020-03-11] MEDS: Cyclobenzaprine 10 MG TAB PO PRN ×2 (09:00→17:27)
[2020-03-11] MEDS: levETIRAcetam 500 MG TAB PO SCH ×2 (09:00→20:25)
[2020-03-11] MEDS: Senokot 8.6 MG TAB PO SCH ×2 (09:00→20:25)
[2020-03-11] MEDS: ATOMOXETINE HCL 40 MG PO SCH (09:00)
[2020-03-11] MEDS: Nitrofurantoin Macrocrystal 50 MG CAP PO SCH (09:01)
[2020-03-11] MEDS: Enoxaparin Sodium 40 MG/0.4 ML SYRINGE SC SCH (09:01)
[2020-03-11] MEDS: Polyethylene Glycol 3350 17 GM Packet PO SCH ×2 (09:01→20:29)
[2020-03-11] MEDS: Lidocaine Patch Removal TOP SCH (09:12)
[2020-03-11] MEDS: Nystatin Cream 15 GM TUBE TOP SCH ×2 (09:13→20:27)
[2020-03-11] MEDS: traZODone HCl 50 MG TAB PO SCH (20:24)
[2020-03-11] MEDS: Lidocaine 5% Patch TD SCH (20:25)
[2020-03-12] MEDS: HYDROcodone/Acetaminophen 10/325 mg Tablet PO PRN ×5 (02:00→21:18)
[2020-03-12] MEDS: Diazepam 5 MG TAB PO SCH ×2 (08:03→21:17)
[2020-03-12] MEDS: Ascorbic Acid 500 mg Chewable Tablet PO SCH ×2 (08:03→21:17)
[2020-03-12] MEDS: Ferrous Sulfate 325 MG TAB PO SCH ×2 (08:03→17:09)
[2020-03-12] MEDS: Nitrofurantoin Macrocrystal 50 MG CAP PO SCH (08:04)
[2020-03-12] MEDS: levETIRAcetam 500 MG TAB PO SCH ×2 (08:04→21:16)
[2020-03-12] MEDS: Senokot 8.6 MG TAB PO SCH ×2 (08:04→21:17)
[2020-03-12] MEDS: Polyethylene Glycol 3350 17 GM Packet PO SCH ×2 (08:04→21:17)
[2020-03-12] MEDS: Enoxaparin Sodium 40 MG/0.4 ML SYRINGE SC SCH (08:04)
[2020-03-12] MEDS: Nystatin Cream 15 GM TUBE TOP SCH ×2 (08:04→21:18)
[2020-03-12] MEDS: Lidocaine Patch Removal TOP SCH (08:04)
[2020-03-12] MEDS: ATOMOXETINE HCL 40 MG PO SCH (08:12)
[2020-03-12] MEDS: Cyclobenzaprine 10 MG TAB PO PRN (08:12)
[2020-03-12] MEDS: traZODone HCl 50 MG TAB PO SCH (21:16)
[2020-03-12] MEDS: Lidocaine 5% Patch TD SCH (21:18)
[2020-03-13] MEDS: HYDROcodone/Acetaminophen 10/325 mg Tablet PO PRN ×5 (02:38→21:12)
[2020-03-13] MEDS: Nitrofurantoin Macrocrystal 50 MG CAP PO SCH (08:41)
[2020-03-13] MEDS: levETIRAcetam 500 MG TAB PO SCH ×2 (08:41→21:13)
[2020-03-13] MEDS: Senokot 8.6 MG TAB PO SCH ×2 (08:41→21:27)
[2020-03-13] MEDS: Ferrous Sulfate 325 MG TAB PO SCH ×2 (08:41→16:04)
[2020-03-13] MEDS: Ascorbic Acid 500 mg Chewable Tablet PO SCH ×2 (08:41→21:15)
[2020-03-13] MEDS: Diazepam 5 MG TAB PO SCH ×2 (08:41→21:12)
[2020-03-13] MEDS: Enoxaparin Sodium 40 MG/0.4 ML SYRINGE SC SCH (08:42)
[2020-03-13] MEDS: Polyethylene Glycol 3350 17 GM Packet PO SCH ×2 (08:42→21:16)
[2020-03-13] MEDS: Nystatin Cream 15 GM TUBE TOP SCH ×2 (08:42→21:14)
[2020-03-13] MEDS: Lidocaine Patch Removal TOP SCH (08:42)
[2020-03-13] MEDS: ATOMOXETINE HCL 40 MG PO SCH (08:45)
[2020-03-13] MEDS: traZODone HCl 50 MG TAB PO SCH (21:14)
[2020-03-13] MEDS: Cyclobenzaprine 10 MG TAB PO PRN (21:15)
[2020-03-13] MEDS: Lidocaine 5% Patch TD SCH (21:16)
[2020-03-14] MEDS: HYDROcodone/Acetaminophen 10/325 mg Tablet PO PRN ×5 (02:12→21:06)
[2020-03-14] MEDS: Cyclobenzaprine 10 MG TAB PO PRN ×2 (06:20→17:01)
[2020-03-14] MEDS: Senokot 8.6 MG TAB PO SCH ×2 (09:38→20:39)
[2020-03-14] MEDS: Ascorbic Acid 500 mg Chewable Tablet PO SCH ×2 (09:38→20:40)
[2020-03-14] MEDS: Nitrofurantoin Macrocrystal 50 MG CAP PO SCH (09:39)
[2020-03-14] MEDS: Ferrous Sulfate 325 MG TAB PO SCH ×2 (09:39→17:01)
[2020-03-14] MEDS: levETIRAcetam 500 MG TAB PO SCH ×2 (09:39→20:39)
[2020-03-14] MEDS: Polyethylene Glycol 3350 17 GM Packet PO SCH ×2 (09:40→20:54)
[2020-03-14] MEDS: Enoxaparin Sodium 40 MG/0.4 ML SYRINGE SC SCH (09:41)
[2020-03-14] MEDS: ATOMOXETINE HCL 40 MG PO SCH (09:42)
[2020-03-14] MEDS: Nystatin Cream 15 GM TUBE TOP SCH ×2 (10:34→20:53)
[2020-03-14] MEDS: Lidocaine Patch Removal TOP SCH (10:34)
[2020-03-14] MEDS: traZODone HCl 50 MG TAB PO SCH (20:40)
[2020-03-14] MEDS: Diazepam 5 MG TAB PO SCH (20:40)
[2020-03-14] MEDS: Lidocaine 5% Patch TD SCH (20:41)
[2020-03-15] MEDS: HYDROcodone/Acetaminophen 10/325 mg Tablet PO PRN ×5 (02:05→21:58)
[2020-03-15] MEDS: Cyclobenzaprine 10 MG TAB PO PRN ×2 (06:14→16:48)
[2020-03-15] MEDS: ATOMOXETINE HCL 40 MG PO SCH (09:50)
[2020-03-15] MEDS: Senokot 8.6 MG TAB PO SCH ×2 (09:51→21:03)
[2020-03-15] MEDS: Enoxaparin Sodium 40 MG/0.4 ML SYRINGE SC SCH (09:51)
[2020-03-15] MEDS: Ascorbic Acid 500 mg Chewable Tablet PO SCH ×2 (09:51→21:03)
[2020-03-15] MEDS: Ferrous Sulfate 325 MG TAB PO SCH ×2 (09:51→16:46)
[2020-03-15] MEDS: Nitrofurantoin Macrocrystal 50 MG CAP PO SCH (09:51)
[2020-03-15] MEDS: levETIRAcetam 500 MG TAB PO SCH ×2 (09:51→21:03)
[2020-03-15] MEDS: Polyethylene Glycol 3350 17 GM Packet PO SCH ×2 (09:52→21:04)
[2020-03-15] MEDS: Nystatin Cream 15 GM TUBE TOP SCH ×2 (09:52→21:04)
[2020-03-15] MEDS: Lidocaine Patch Removal TOP SCH (09:52)
[2020-03-15] MEDS: Diazepam 5 MG TAB PO SCH ×2 (09:58→21:03)
[2020-03-15] MEDS ORDERED: Fluconazole 100 MG TAB PO SCH (13:45)
[2020-03-15] MEDS: traZODone HCl 50 MG TAB PO SCH (21:03)
[2020-03-15] MEDS: Lidocaine 5% Patch TD SCH (21:04)
[2020-03-16] MEDS: HYDROcodone/Acetaminophen 10/325 mg Tablet PO PRN ×5 (02:14→22:08)
[2020-03-16] MEDS: Enoxaparin Sodium 40 MG/0.4 ML SYRINGE SC SCH (08:59)
[2020-03-16] MEDS: Diazepam 5 MG TAB PO SCH ×2 (09:00→20:56)
[2020-03-16] MEDS: Nitrofurantoin Macrocrystal 50 MG CAP PO SCH (09:00)
[2020-03-16] MEDS: levETIRAcetam 500 MG TAB PO SCH ×2 (09:00→20:56)
[2020-03-16] MEDS: Senokot 8.6 MG TAB PO SCH ×2 (09:00→20:56)
[2020-03-16] MEDS: Cyclobenzaprine 10 MG TAB PO PRN ×2 (09:00→22:08)
[2020-03-16] MEDS: Ferrous Sulfate 325 MG TAB PO SCH ×2 (09:00→16:36)
[2020-03-16] MEDS: Ascorbic Acid 500 mg Chewable Tablet PO SCH ×2 (09:00→20:57)
[2020-03-16] MEDS: Polyethylene Glycol 3350 17 GM Packet PO SCH ×2 (09:01→20:57)
[2020-03-16] MEDS: Lidocaine Patch Removal TOP SCH (09:01)
[2020-03-16] MEDS: ATOMOXETINE HCL 40 MG PO SCH (09:01)
[2020-03-16] MEDS: Nystatin Cream 15 GM TUBE TOP SCH ×2 (09:01→20:57)
[2020-03-16] MEDS: traZODone HCl 50 MG TAB PO SCH (20:56)
[2020-03-16] MEDS: Lidocaine 5% Patch TD SCH (20:57)
[2020-03-17] MEDS: HYDROcodone/Acetaminophen 10/325 mg Tablet PO PRN ×5 (02:09→22:33)
[2020-03-17] MEDS: Ferrous Sulfate 325 MG TAB PO SCH ×2 (08:37→17:13)
[2020-03-17] MEDS: Cyclobenzaprine 10 MG TAB PO PRN ×2 (08:37→17:20)
[2020-03-17] MEDS: Senokot 8.6 MG TAB PO SCH ×2 (08:38→22:00)
[2020-03-17] MEDS: levETIRAcetam 500 MG TAB PO SCH ×2 (08:38→22:00)
[2020-03-17] MEDS: Diazepam 5 MG TAB PO SCH ×2 (08:38→22:09)
[2020-03-17] MEDS: Ascorbic Acid 500 mg Chewable Tablet PO SCH ×2 (08:39→22:00)
[2020-03-17] MEDS: Enoxaparin Sodium 40 MG/0.4 ML SYRINGE SC SCH (08:40)
[2020-03-17] MEDS: Polyethylene Glycol 3350 17 GM Packet PO SCH ×2 (08:40→22:00)
[2020-03-17] MEDS: Nitrofurantoin Macrocrystal 50 MG CAP PO SCH (08:41)
[2020-03-17] MEDS: Lidocaine Patch Removal TOP SCH (08:41)
[2020-03-17] MEDS: Nystatin Cream 15 GM TUBE TOP SCH ×2 (08:41→21:00)
[2020-03-17] MEDS: ATOMOXETINE HCL 40 MG PO SCH (08:45)
[2020-03-17] MEDS: Lidocaine 5% Patch TD SCH (22:00)
[2020-03-17] MEDS: traZODone HCl 50 MG TAB PO SCH (22:00)
[2020-03-18] MEDS: HYDROcodone/Acetaminophen 10/325 mg Tablet PO PRN ×5 (02:35→22:42)
[2020-03-18] MEDS: Diazepam 5 MG TAB PO SCH ×2 (08:27→21:25)
[2020-03-18] MEDS: Ferrous Sulfate 325 MG TAB PO SCH ×2 (08:31→17:10)
[2020-03-18] MEDS: levETIRAcetam 500 MG TAB PO SCH ×2 (08:32→21:26)
[2020-03-18] MEDS: Ascorbic Acid 500 mg Chewable Tablet PO SCH ×2 (08:32→21:26)
[2020-03-18] MEDS: Senokot 8.6 MG TAB PO SCH ×2 (08:33→21:26)
[2020-03-18] MEDS: Polyethylene Glycol 3350 17 GM Packet PO SCH ×2 (08:33→21:27)
[2020-03-18] MEDS: Nitrofurantoin Macrocrystal 50 MG CAP PO SCH (08:33)
[2020-03-18] MEDS: Enoxaparin Sodium 40 MG/0.4 ML SYRINGE SC SCH (08:34)
[2020-03-18] MEDS: Lidocaine Patch Removal TOP SCH (08:36)
[2020-03-18] MEDS: Nystatin Cream 15 GM TUBE TOP SCH ×2 (08:37→21:27)
[2020-03-18] MEDS: ATOMOXETINE HCL 40 MG PO SCH (08:38)
[2020-03-18] MEDS: Cyclobenzaprine 10 MG TAB PO PRN (17:10)
[2020-03-18] MEDS: Lidocaine 5% Patch TD SCH (21:26)
[2020-03-18] MEDS: traZODone HCl 50 MG TAB PO SCH (21:26)
[2020-03-19] MEDS: Cyclobenzaprine 10 MG TAB PO PRN ×3 (01:05→22:21)
[2020-03-19] MEDS: ATOMOXETINE HCL 40 MG PO SCH (09:15)
[2020-03-19] MEDS: Enoxaparin Sodium 40 MG/0.4 ML SYRINGE SC SCH (09:16)
[2020-03-19] MEDS: Polyethylene Glycol 3350 17 GM Packet PO SCH ×2 (09:16→20:38)
[2020-03-19] MEDS: HYDROcodone/Acetaminophen 10/325 mg Tablet PO PRN ×3 (09:16→20:52)
[2020-03-19] MEDS: Ferrous Sulfate 325 MG TAB PO SCH ×2 (09:16→17:11)
[2020-03-19] MEDS: Nitrofurantoin Macrocrystal 50 MG CAP PO SCH (09:16)
[2020-03-19] MEDS: Diazepam 5 MG TAB PO SCH ×2 (09:17→20:35)
[2020-03-19] MEDS: Ascorbic Acid 500 mg Chewable Tablet PO SCH ×2 (09:18→20:35)
[2020-03-19] MEDS: Lidocaine Patch Removal TOP SCH (09:18)
[2020-03-19] MEDS: Senokot 8.6 MG TAB PO SCH ×2 (09:18→20:34)
[2020-03-19] MEDS: levETIRAcetam 500 MG TAB PO SCH ×2 (09:18→20:34)
[2020-03-19] MEDS: Nystatin Cream 15 GM TUBE TOP SCH ×2 (09:19→21:00)
[2020-03-19] MEDS: traZODone HCl 50 MG TAB PO SCH (20:34)
[2020-03-19] MEDS: Lidocaine 5% Patch TD SCH (20:36)
[2020-03-20] MEDS: HYDROcodone/Acetaminophen 10/325 mg Tablet PO PRN ×5 (02:10→21:33)
[2020-03-20] MEDS: Diazepam 5 MG TAB PO SCH ×2 (08:51→21:40)
[2020-03-20] MEDS: levETIRAcetam 500 MG TAB PO SCH ×2 (08:51→21:40)
[2020-03-20] MEDS: Cyclobenzaprine 10 MG TAB PO PRN ×2 (08:52→21:40)
[2020-03-20] MEDS: Ascorbic Acid 500 mg Chewable Tablet PO SCH ×2 (08:52→21:40)
[2020-03-20] MEDS: Nitrofurantoin Macrocrystal 50 MG CAP PO SCH (08:52)
[2020-03-20] MEDS: Ferrous Sulfate 325 MG TAB PO SCH ×2 (08:52→17:15)
[2020-03-20] MEDS: Senokot 8.6 MG TAB PO SCH ×2 (08:52→21:33)
[2020-03-20] MEDS: Enoxaparin Sodium 40 MG/0.4 ML SYRINGE SC SCH (08:52)
[2020-03-20] MEDS: ATOMOXETINE HCL 40 MG PO SCH (08:56)
[2020-03-20] MEDS: Polyethylene Glycol 3350 17 GM Packet PO SCH ×2 (08:59→22:14)
[2020-03-20] MEDS: Nystatin Cream 15 GM TUBE TOP SCH ×2 (08:59→22:13)
[2020-03-20] MEDS: Lidocaine Patch Removal TOP SCH (09:06)
[2020-03-20] MEDS: Lidocaine 5% Patch TD SCH (21:15)
[2020-03-20] MEDS: traZODone HCl 50 MG TAB PO SCH (21:32)
[2020-03-21] MEDS: HYDROcodone/Acetaminophen 10/325 mg Tablet PO PRN ×5 (02:10→22:29)
[2020-03-21] MEDS: Enoxaparin Sodium 40 MG/0.4 ML SYRINGE SC SCH (08:57)
[2020-03-21] MEDS: Ferrous Sulfate 325 MG TAB PO SCH ×2 (08:57→18:17)
[2020-03-21] MEDS: Polyethylene Glycol 3350 17 GM Packet PO SCH ×2 (08:57→20:00)
[2020-03-21] MEDS: Diazepam 5 MG TAB PO SCH ×2 (08:58→20:30)
[2020-03-21] MEDS: Nitrofurantoin Macrocrystal 50 MG CAP PO SCH (08:59)
[2020-03-21] MEDS: Cyclobenzaprine 10 MG TAB PO PRN ×2 (08:59→22:28)
[2020-03-21] MEDS: Senokot 8.6 MG TAB PO SCH ×2 (08:59→20:28)
[2020-03-21] MEDS: levETIRAcetam 500 MG TAB PO SCH ×2 (08:59→20:29)
[2020-03-21] MEDS: Ascorbic Acid 500 mg Chewable Tablet PO SCH ×2 (08:59→20:29)
[2020-03-21] MEDS: Nystatin Cream 15 GM TUBE TOP SCH ×2 (09:03→20:43)
[2020-03-21] MEDS: Lidocaine Patch Removal TOP SCH (09:03)
[2020-03-21] MEDS: ATOMOXETINE HCL 40 MG PO SCH (09:05)
[2020-03-21] MEDS: traZODone HCl 50 MG TAB PO SCH (20:31)
[2020-03-21] MEDS: Ibuprofen 800 MG TAB PO PRN (20:38)
[2020-03-21] MEDS: Lidocaine 5% Patch TD SCH (20:48)
[2020-03-22] MEDS: Nitrofurantoin Macrocrystal 50 MG CAP PO SCH (08:14)
[2020-03-22] MEDS: Cyclobenzaprine 10 MG TAB PO PRN ×2 (08:14→23:21)
[2020-03-22] MEDS: levETIRAcetam 500 MG TAB PO SCH ×2 (08:15→20:51)
[2020-03-22] MEDS: Diazepam 5 MG TAB PO SCH ×2 (08:15→20:54)
[2020-03-22] MEDS: Ascorbic Acid 500 mg Chewable Tablet PO SCH ×2 (08:15→20:52)
[2020-03-22] MEDS: HYDROcodone/Acetaminophen 10/325 mg Tablet PO PRN ×4 (08:15→23:20)
[2020-03-22] MEDS: Senokot 8.6 MG TAB PO SCH ×2 (08:15→20:52)
[2020-03-22] MEDS: Ferrous Sulfate 325 MG TAB PO SCH ×2 (08:15→17:01)
[2020-03-22] MEDS: Enoxaparin Sodium 40 MG/0.4 ML SYRINGE SC SCH (08:16)
[2020-03-22] MEDS: Lidocaine Patch Removal TOP SCH (08:18)
[2020-03-22] MEDS: Nystatin Cream 15 GM TUBE TOP SCH ×2 (08:18→21:05)
[2020-03-22] MEDS: Polyethylene Glycol 3350 17 GM Packet PO SCH ×2 (08:18→19:47)
[2020-03-22] MEDS: ATOMOXETINE HCL 40 MG PO SCH (08:19)
[2020-03-22] MEDS: Lidocaine 5% Patch TD SCH (20:49)
[2020-03-22] MEDS: traZODone HCl 50 MG TAB PO SCH (20:53)
[2020-03-22] MEDS: Ibuprofen 800 MG TAB PO PRN (20:54)
[2020-03-23] MEDS: Diazepam 5 MG TAB PO SCH ×2 (08:36→20:39)
[2020-03-23] MEDS: Enoxaparin Sodium 40 MG/0.4 ML SYRINGE SC SCH (08:36)
[2020-03-23] MEDS: Nitrofurantoin Macrocrystal 50 MG CAP PO SCH (08:36)
[2020-03-23] MEDS: Ferrous Sulfate 325 MG TAB PO SCH ×2 (08:36→17:14)
[2020-03-23] MEDS: levETIRAcetam 500 MG TAB PO SCH ×2 (08:36→20:38)
[2020-03-23] MEDS: Ascorbic Acid 500 mg Chewable Tablet PO SCH ×2 (08:36→20:38)
[2020-03-23] MEDS: Senokot 8.6 MG TAB PO SCH ×2 (08:36→20:38)
[2020-03-23] MEDS: Lidocaine Patch Removal TOP SCH (08:37)
[2020-03-23] MEDS: Nystatin Cream 15 GM TUBE TOP SCH ×2 (08:37→20:39)
[2020-03-23] MEDS: ATOMOXETINE HCL 40 MG PO SCH (08:37)
[2020-03-23] MEDS: Cyclobenzaprine 10 MG TAB PO PRN ×2 (09:05→22:13)
[2020-03-23] MEDS: HYDROcodone/Acetaminophen 10/325 mg Tablet PO PRN ×4 (09:06→22:13)
[2020-03-23] MEDS: Polyethylene Glycol 3350 17 GM Packet PO SCH ×2 (09:09→20:37)
[2020-03-23] MEDS: Lidocaine 5% Patch TD SCH (20:37)
[2020-03-23] MEDS: traZODone HCl 50 MG TAB PO SCH (20:38)
[2020-03-24] MEDS: Ferrous Sulfate 325 MG TAB PO SCH ×2 (08:31→17:15)
[2020-03-24] MEDS: Senokot 8.6 MG TAB PO SCH ×2 (08:31→21:36)
[2020-03-24] MEDS: Ascorbic Acid 500 mg Chewable Tablet PO SCH ×2 (08:31→21:36)
[2020-03-24] MEDS: Nitrofurantoin Macrocrystal 50 MG CAP PO SCH (08:31)
[2020-03-24] MEDS: Cyclobenzaprine 10 MG TAB PO PRN ×2 (08:32→23:07)
[2020-03-24] MEDS: Lidocaine Patch Removal TOP SCH (08:32)
[2020-03-24] MEDS: Polyethylene Glycol 3350 17 GM Packet PO SCH ×2 (08:32→20:48)
[2020-03-24] MEDS: Enoxaparin Sodium 40 MG/0.4 ML SYRINGE SC SCH (08:32)
[2020-03-24] MEDS: levETIRAcetam 500 MG TAB PO SCH ×2 (08:32→21:35)
[2020-03-24] MEDS: HYDROcodone/Acetaminophen 10/325 mg Tablet PO PRN ×4 (08:32→23:07)
[2020-03-24] MEDS: Diazepam 5 MG TAB PO SCH ×2 (08:32→21:36)
[2020-03-24] MEDS: Nystatin Cream 15 GM TUBE TOP SCH ×2 (08:32→21:36)
[2020-03-24] MEDS: ATOMOXETINE HCL 40 MG PO SCH (08:32)
[2020-03-24] MEDS: traZODone HCl 50 MG TAB PO SCH (21:35)
[2020-03-24] MEDS: Lidocaine 5% Patch TD SCH (21:35)
[2020-03-25] MEDS: ATOMOXETINE HCL 40 MG PO SCH (08:34)
[2020-03-25] MEDS: Ferrous Sulfate 325 MG TAB PO SCH ×2 (08:35→17:08)
[2020-03-25] MEDS: Senokot 8.6 MG TAB PO SCH ×2 (08:35→21:20)
[2020-03-25] MEDS: Nitrofurantoin Macrocrystal 50 MG CAP PO SCH (08:35)
[2020-03-25] MEDS: HYDROcodone/Acetaminophen 10/325 mg Tablet PO PRN ×4 (08:35→22:10)
[2020-03-25] MEDS: Ascorbic Acid 500 mg Chewable Tablet PO SCH ×2 (08:35→21:17)
[2020-03-25] MEDS: levETIRAcetam 500 MG TAB PO SCH ×2 (08:35→21:18)
[2020-03-25] MEDS: Diazepam 5 MG TAB PO SCH ×2 (08:36→21:17)
[2020-03-25] MEDS: Cyclobenzaprine 10 MG TAB PO PRN ×2 (08:36→22:10)
[2020-03-25] MEDS: Polyethylene Glycol 3350 17 GM Packet PO SCH ×2 (08:37→21:20)
[2020-03-25] MEDS: Enoxaparin Sodium 40 MG/0.4 ML SYRINGE SC SCH (08:37)
[2020-03-25] MEDS: Nystatin Cream 15 GM TUBE TOP SCH ×2 (08:37→21:16)
[2020-03-25] MEDS: Lidocaine Patch Removal TOP SCH (08:37)
[2020-03-25 17:23] LABS: Hemoglobin 11.3 g/dL (12.0-16.0); Platelet Count 219 thou/uL (130-400)
[2020-03-25 17:34] LABS: Mean Corpuscular Hemoglobin 30.8 pg (27.0-31.0); Mean Corpuscular Volume 96.2 fL (78.0-98.0); RBC Distribution Width 12.3 % (11.5-14.5); Red Blood Cell (RBC) Count 3.67 mill/uL (4.20-5.40); White Blood Cell (WBC) Count 4.9 thou/uL (4.8-10.8)
[2020-03-25 17:35] LABS: #Basophils 0.1 thou/uL (0.0-0.2); #Eosinphils 0.6 thou/uL (0.0-0.7); #Lymphocytes 1.3 thou/uL (1.20-3.40); #Monocytes 0.5 thou/uL (0.11-0.59); #Neutrophils 2.5 thou/uL (1.40-6.50); %Basophils 1.1 % (0.0-1.0); %Eosinophils 11.2 % (0.0-10.0); %Lymphocytes 26.9 % (21.0-51.0); %Monocytes 9.2 % (0.0-10.0); %Neutrophils 51.6 % (42.0-75.0); Manual Diff?? NO; Mean Platelet Volume 5.4 fL (7.4-10.4)
[2020-03-25] MEDS ORDERED: Triple Antibiotic Oint 1 GM Packet ONE (21:08)
[2020-03-25] MEDS: Lidocaine 5% Patch TD SCH (21:18)
[2020-03-25] MEDS: Triple Antibiotic Ointment 15 GM TUBE TOP SCH (21:19)
[2020-03-25] MEDS: traZODone HCl 50 MG TAB PO SCH (21:20)
[2020-03-26] MEDS: HYDROcodone/Acetaminophen 10/325 mg Tablet PO PRN ×5 (02:21→20:28)
[2020-03-26] MEDS: Senokot 8.6 MG TAB PO SCH ×2 (08:15→20:21)
[2020-03-26] MEDS: Ascorbic Acid 500 mg Chewable Tablet PO SCH ×2 (08:15→20:21)
[2020-03-26] MEDS: Diazepam 5 MG TAB PO SCH ×2 (08:16→20:16)
[2020-03-26] MEDS: Nitrofurantoin Macrocrystal 50 MG CAP PO SCH (08:16)
[2020-03-26] MEDS: Ferrous Sulfate 325 MG TAB PO SCH ×2 (08:16→16:32)
[2020-03-26] MEDS: levETIRAcetam 500 MG TAB PO SCH ×2 (08:16→20:21)
[2020-03-26] MEDS: Cyclobenzaprine 10 MG TAB PO PRN ×2 (08:17→17:38)
[2020-03-26] MEDS: Nystatin Cream 15 GM TUBE TOP SCH ×2 (08:17→20:25)
[2020-03-26] MEDS: Enoxaparin Sodium 40 MG/0.4 ML SYRINGE SC SCH (08:17)
[2020-03-26] MEDS: Triple Antibiotic Ointment 15 GM TUBE TOP SCH (08:17)
[2020-03-26] MEDS: Lidocaine Patch Removal TOP SCH (08:20)
[2020-03-26] MEDS: ATOMOXETINE HCL 40 MG PO SCH (08:20)
[2020-03-26] MEDS: Polyethylene Glycol 3350 17 GM Packet PO SCH ×2 (12:18→20:22)
[2020-03-26] MEDS: Triple Antibiotic Oint 1 GM Packet TOP SCH ×2 (14:42→20:22)
[2020-03-26] MEDS: traZODone HCl 50 MG TAB PO SCH (20:21)
[2020-03-26] MEDS: Lidocaine 5% Patch TD SCH (20:31)
[2020-03-27] MEDS: HYDROcodone/Acetaminophen 10/325 mg Tablet PO PRN ×5 (00:53→22:16)
[2020-03-27] MEDS: Cyclobenzaprine 10 MG TAB PO PRN ×3 (01:54→22:16)
[2020-03-27] MEDS: Nystatin Cream 15 GM TUBE TOP SCH ×2 (08:08→20:52)
[2020-03-27] MEDS: Nitrofurantoin Macrocrystal 50 MG CAP PO SCH (08:10)
[2020-03-27] MEDS: Triple Antibiotic Oint 1 GM Packet TOP SCH ×3 (08:11→20:49)
[2020-03-27] MEDS: Senokot 8.6 MG TAB PO SCH ×2 (08:11→20:48)
[2020-03-27] MEDS: Ferrous Sulfate 325 MG TAB PO SCH ×2 (08:12→16:53)
[2020-03-27] MEDS: Diazepam 5 MG TAB PO SCH ×2 (08:12→20:49)
[2020-03-27] MEDS: Enoxaparin Sodium 40 MG/0.4 ML SYRINGE SC SCH (08:12)
[2020-03-27] MEDS: Ascorbic Acid 500 mg Chewable Tablet PO SCH ×2 (08:12→20:49)
[2020-03-27] MEDS: levETIRAcetam 500 MG TAB PO SCH ×2 (08:12→20:49)
[2020-03-27] MEDS: Lidocaine Patch Removal TOP SCH (08:13)
[2020-03-27] MEDS: ATOMOXETINE HCL 40 MG PO SCH (08:16)
[2020-03-27] MEDS: Polyethylene Glycol 3350 17 GM Packet PO SCH ×2 (12:00→20:52)
[2020-03-27] MEDS: Lidocaine 5% Patch TD SCH (20:48)
[2020-03-27] MEDS: Ibuprofen 800 MG TAB PO PRN (20:49)
[2020-03-27] MEDS: traZODone HCl 50 MG TAB PO SCH (20:49)
[2020-03-28] MEDS: Polyethylene Glycol 3350 17 GM Packet PO SCH ×2 (08:02→20:59)
[2020-03-28] MEDS: Enoxaparin Sodium 40 MG/0.4 ML SYRINGE SC SCH (08:02)
[2020-03-28] MEDS: levETIRAcetam 500 MG TAB PO SCH ×2 (08:03→20:57)
[2020-03-28] MEDS: Nitrofurantoin Macrocrystal 50 MG CAP PO SCH (08:03)
[2020-03-28] MEDS: Diazepam 5 MG TAB PO SCH ×2 (08:03→20:58)
[2020-03-28] MEDS: Cyclobenzaprine 10 MG TAB PO PRN ×2 (08:03→16:55)
[2020-03-28] MEDS: Ascorbic Acid 500 mg Chewable Tablet PO SCH ×2 (08:03→20:58)
[2020-03-28] MEDS: Triple Antibiotic Oint 1 GM Packet TOP SCH ×3 (08:03→20:57)
[2020-03-28] MEDS: Ferrous Sulfate 325 MG TAB PO SCH ×2 (08:03→16:52)
[2020-03-28] MEDS: Senokot 8.6 MG TAB PO SCH ×2 (08:03→20:57)
[2020-03-28] MEDS: HYDROcodone/Acetaminophen 10/325 mg Tablet PO PRN ×4 (08:04→20:59)
[2020-03-28] MEDS: Lidocaine Patch Removal TOP SCH (08:10)
[2020-03-28] MEDS: Nystatin Cream 15 GM TUBE TOP SCH ×2 (08:10→20:58)
[2020-03-28] MEDS: ATOMOXETINE HCL 40 MG PO SCH (08:10)
[2020-03-28] MEDS: Ibuprofen 800 MG TAB PO SCH ×2 (14:46→21:00)
[2020-03-28] MEDS: Lidocaine 5% Patch TD SCH (20:56)
[2020-03-28] MEDS: traZODone HCl 50 MG TAB PO SCH (20:58)
[2020-03-29] MEDS: Cyclobenzaprine 10 MG TAB PO PRN ×3 (01:12→20:15)
[2020-03-29] MEDS: HYDROcodone/Acetaminophen 10/325 mg Tablet PO PRN ×5 (01:13→21:47)
[2020-03-29] MEDS: Ibuprofen 800 MG TAB PO SCH ×3 (05:40→21:47)
[2020-03-29] MEDS: ATOMOXETINE HCL 40 MG PO SCH (09:09)
[2020-03-29] MEDS: Polyethylene Glycol 3350 17 GM Packet PO SCH ×2 (09:10→21:49)
[2020-03-29] MEDS: Diazepam 5 MG TAB PO SCH ×2 (09:10→21:47)
[2020-03-29] MEDS: levETIRAcetam 500 MG TAB PO SCH ×2 (09:11→21:47)
[2020-03-29] MEDS: Nitrofurantoin Macrocrystal 50 MG CAP PO SCH (09:11)
[2020-03-29] MEDS: Ascorbic Acid 500 mg Chewable Tablet PO SCH ×2 (09:11→21:46)
[2020-03-29] MEDS: Triple Antibiotic Oint 1 GM Packet TOP SCH ×3 (09:11→21:46)
[2020-03-29] MEDS: Ferrous Sulfate 325 MG TAB PO SCH ×2 (09:11→17:11)
[2020-03-29] MEDS: Senokot 8.6 MG TAB PO SCH ×2 (09:11→21:46)
[2020-03-29] MEDS: Nystatin Cream 15 GM TUBE TOP SCH ×2 (09:15→21:49)
[2020-03-29] MEDS: Lidocaine Patch Removal TOP SCH (09:15)
[2020-03-29] MEDS: Enoxaparin Sodium 40 MG/0.4 ML SYRINGE SC SCH (09:27)
[2020-03-29] MEDS: Lidocaine 5% Patch TD SCH (21:46)
[2020-03-29] MEDS: traZODone HCl 50 MG TAB PO SCH (21:47)
[2020-03-30] MEDS: HYDROcodone/Acetaminophen 10/325 mg Tablet PO PRN ×5 (05:50→22:29)
[2020-03-30] MEDS: Ibuprofen 800 MG TAB PO SCH ×3 (05:50→21:10)
[2020-03-30] MEDS: Polyethylene Glycol 3350 17 GM Packet PO SCH ×2 (08:01→20:42)
[2020-03-30] MEDS: Senokot 8.6 MG TAB PO SCH ×2 (08:01→20:34)
[2020-03-30] MEDS: Ferrous Sulfate 325 MG TAB PO SCH ×2 (08:01→16:48)
[2020-03-30] MEDS: levETIRAcetam 500 MG TAB PO SCH ×2 (08:01→20:35)
[2020-03-30] MEDS: Triple Antibiotic Oint 1 GM Packet TOP SCH ×3 (08:01→20:47)
[2020-03-30] MEDS: Cyclobenzaprine 10 MG TAB PO PRN ×2 (08:01→16:48)
[2020-03-30] MEDS: ATOMOXETINE HCL 40 MG PO SCH (08:01)
[2020-03-30] MEDS: Ascorbic Acid 500 mg Chewable Tablet PO SCH ×2 (08:02→20:37)
[2020-03-30] MEDS: Nitrofurantoin Macrocrystal 50 MG CAP PO SCH (08:02)
[2020-03-30] MEDS: Diazepam 5 MG TAB PO SCH ×2 (08:02→20:37)
[2020-03-30] MEDS: Nystatin Cream 15 GM TUBE TOP SCH ×2 (08:02→20:43)
[2020-03-30] MEDS: Enoxaparin Sodium 40 MG/0.4 ML SYRINGE SC SCH (08:03)
[2020-03-30] MEDS: Lidocaine Patch Removal TOP SCH (08:04)
[2020-03-30] MEDS: traZODone HCl 50 MG TAB PO SCH (20:36)
[2020-03-30] MEDS: Lidocaine 5% Patch TD SCH (20:39)
[2020-03-31] MEDS: Cyclobenzaprine 10 MG TAB PO PRN ×3 (01:30→21:25)
[2020-03-31] MEDS: HYDROcodone/Acetaminophen 10/325 mg Tablet PO PRN ×5 (02:33→23:50)
[2020-03-31] MEDS: Ibuprofen 800 MG TAB PO SCH ×3 (05:49→21:23)
[2020-03-31] MEDS: Ferrous Sulfate 325 MG TAB PO SCH ×2 (07:57→17:07)
[2020-03-31] MEDS: levETIRAcetam 500 MG TAB PO SCH ×2 (07:58→21:20)
[2020-03-31] MEDS: Diazepam 5 MG TAB PO SCH ×2 (07:58→21:23)
[2020-03-31] MEDS: Ascorbic Acid 500 mg Chewable Tablet PO SCH ×2 (07:58→21:24)
[2020-03-31] MEDS: Senokot 8.6 MG TAB PO SCH ×2 (07:59→21:22)
[2020-03-31] MEDS: Lidocaine Patch Removal TOP SCH (07:59)
[2020-03-31] MEDS: Triple Antibiotic Oint 1 GM Packet TOP SCH ×3 (07:59→21:21)
[2020-03-31] MEDS: Enoxaparin Sodium 40 MG/0.4 ML SYRINGE SC SCH (08:00)
[2020-03-31] MEDS: ATOMOXETINE HCL 40 MG PO SCH (08:00)
[2020-03-31] MEDS: Nystatin Cream 15 GM TUBE TOP SCH ×2 (08:00→21:25)
[2020-03-31] MEDS: Polyethylene Glycol 3350 17 GM Packet PO SCH ×2 (08:00→21:18)
[2020-03-31] MEDS: Nitrofurantoin Macrocrystal 50 MG CAP PO SCH (08:01)
[2020-03-31] MEDS: traZODone HCl 50 MG TAB PO SCH (21:21)
[2020-03-31] MEDS: Lidocaine 5% Patch TD SCH (21:25)
[2020-04-01] MEDS: HYDROcodone/Acetaminophen 10/325 mg Tablet PO PRN ×5 (03:59→22:25)
[2020-04-01] MEDS: Ibuprofen 800 MG TAB PO SCH ×3 (06:06→22:25)
[2020-04-01] MEDS: Senokot 8.6 MG TAB PO SCH ×2 (09:15→20:53)
[2020-04-01] MEDS: Diazepam 5 MG TAB PO SCH ×2 (09:15→20:54)
[2020-04-01] MEDS: Nitrofurantoin Macrocrystal 50 MG CAP PO SCH (09:16)
[2020-04-01] MEDS: Triple Antibiotic Oint 1 GM Packet TOP SCH ×3 (09:16→20:58)
[2020-04-01] MEDS: Cyclobenzaprine 10 MG TAB PO PRN ×2 (09:16→18:14)
[2020-04-01] MEDS: levETIRAcetam 500 MG TAB PO SCH ×2 (09:17→20:52)
[2020-04-01] MEDS: Lidocaine Patch Removal TOP SCH (09:17)
[2020-04-01] MEDS: Nystatin Cream 15 GM TUBE TOP SCH ×2 (09:17→21:01)
[2020-04-01] MEDS: Polyethylene Glycol 3350 17 GM Packet PO SCH ×2 (09:17→21:01)
[2020-04-01] MEDS: Ascorbic Acid 500 mg Chewable Tablet PO SCH ×2 (09:17→20:53)
[2020-04-01] MEDS: Enoxaparin Sodium 40 MG/0.4 ML SYRINGE SC SCH (09:17)
[2020-04-01] MEDS: ATOMOXETINE HCL 40 MG PO SCH (09:23)
[2020-04-01] MEDS: Ferrous Sulfate 325 MG TAB PO SCH (09:25)
[2020-04-01] MEDS: traZODone HCl 50 MG TAB PO SCH (20:52)
[2020-04-01] MEDS: Lidocaine 5% Patch TD SCH (20:58)
[2020-04-02] MEDS: HYDROcodone/Acetaminophen 10/325 mg Tablet PO PRN ×5 (02:26→22:55)
[2020-04-02] MEDS: Cyclobenzaprine 10 MG TAB PO PRN ×2 (02:27→18:57)
[2020-04-02] MEDS: Ibuprofen 800 MG TAB PO SCH ×3 (06:03→22:18)
[2020-04-02] MEDS: Ferrous Sulfate 325 MG TAB PO SCH (09:17)
[2020-04-02] MEDS: Diazepam 5 MG TAB PO SCH ×2 (09:17→20:20)
[2020-04-02] MEDS: Senokot 8.6 MG TAB PO SCH ×2 (09:17→20:19)
[2020-04-02] MEDS: Triple Antibiotic Oint 1 GM Packet TOP SCH (09:18)
[2020-04-02] MEDS: Enoxaparin Sodium 40 MG/0.4 ML SYRINGE SC SCH (09:18)
[2020-04-02] MEDS: levETIRAcetam 500 MG TAB PO SCH ×2 (09:18→20:17)
[2020-04-02] MEDS: Nitrofurantoin Macrocrystal 50 MG CAP PO SCH (09:18)
[2020-04-02] MEDS: Ascorbic Acid 500 mg Chewable Tablet PO SCH ×2 (09:18→20:19)
[2020-04-02] MEDS: Lidocaine Patch Removal TOP SCH (09:19)
[2020-04-02] MEDS: ATOMOXETINE HCL 40 MG PO SCH (09:20)
[2020-04-02] MEDS: Nystatin Cream 15 GM TUBE TOP SCH ×2 (09:20→20:20)
[2020-04-02] MEDS: Polyethylene Glycol 3350 17 GM Packet PO SCH ×2 (09:46→20:17)
[2020-04-02] MEDS: Lidocaine 5% Patch TD SCH (20:20)
[2020-04-02] MEDS: traZODone HCl 50 MG TAB PO SCH (20:20)
[2020-04-03] MEDS: HYDROcodone/Acetaminophen 10/325 mg Tablet PO PRN ×4 (05:25→19:08)
[2020-04-03] MEDS: Ibuprofen 800 MG TAB PO SCH ×3 (05:27→21:02)
[2020-04-03] MEDS: levETIRAcetam 500 MG TAB PO SCH ×2 (09:36→20:11)
[2020-04-03] MEDS: Polyethylene Glycol 3350 17 GM Packet PO SCH ×2 (09:37→20:14)
[2020-04-03] MEDS: Nitrofurantoin Macrocrystal 50 MG CAP PO SCH (09:37)
[2020-04-03] MEDS: Ferrous Sulfate 325 MG TAB PO SCH (09:37)
[2020-04-03] MEDS: Diazepam 5 MG TAB PO SCH ×2 (09:37→20:12)
[2020-04-03] MEDS: Ascorbic Acid 500 mg Chewable Tablet PO SCH ×2 (09:37→20:12)
[2020-04-03] MEDS: Senokot 8.6 MG TAB PO SCH ×2 (09:37→20:11)
[2020-04-03] MEDS: Enoxaparin Sodium 40 MG/0.4 ML SYRINGE SC SCH (09:37)
[2020-04-03] MEDS: Lidocaine Patch Removal TOP SCH (09:38)
[2020-04-03] MEDS: ATOMOXETINE HCL 40 MG PO SCH (09:39)
[2020-04-03] MEDS: Nystatin Cream 15 GM TUBE TOP SCH ×2 (09:39→20:14)
[2020-04-03] MEDS: Cyclobenzaprine 10 MG TAB PO PRN ×2 (10:18→21:02)
[2020-04-03] MEDS: traZODone HCl 50 MG TAB PO SCH (20:12)
[2020-04-03] MEDS: Lidocaine 5% Patch TD SCH (20:14)
[2020-04-04] MEDS: HYDROcodone/Acetaminophen 10/325 mg Tablet PO PRN ×3 (01:12→10:23)
[2020-04-04] MEDS: Cyclobenzaprine 10 MG TAB PO PRN ×2 (05:52→22:35)
[2020-04-04] MEDS: Ibuprofen 800 MG TAB PO SCH ×3 (05:52→22:35)
[2020-04-04] MEDS: Diazepam 5 MG TAB PO SCH ×2 (09:10→21:04)
[2020-04-04] MEDS: Ferrous Sulfate 325 MG TAB PO SCH (09:10)
[2020-04-04] MEDS: levETIRAcetam 500 MG TAB PO SCH ×2 (09:11→21:00)
[2020-04-04] MEDS: Nystatin Cream 15 GM TUBE TOP SCH ×2 (09:11→21:17)
[2020-04-04] MEDS: Enoxaparin Sodium 40 MG/0.4 ML SYRINGE SC SCH (09:11)
[2020-04-04] MEDS: Ascorbic Acid 500 mg Chewable Tablet PO SCH ×2 (09:11→21:01)
[2020-04-04] MEDS: Senokot 8.6 MG TAB PO SCH ×2 (09:11→21:02)
[2020-04-04] MEDS: Nitrofurantoin Macrocrystal 50 MG CAP PO SCH (09:11)
[2020-04-04] MEDS: ATOMOXETINE HCL 40 MG PO SCH (09:11)
[2020-04-04] MEDS: Lidocaine Patch Removal TOP SCH (09:12)
[2020-04-04] MEDS: Polyethylene Glycol 3350 17 GM Packet PO SCH ×2 (09:12→21:09)
[2020-04-04 13:49] VITALS: BMI 24.9
[2020-04-04] MEDS: Acetaminophen/Codeine 30-300mg Tablet PO PRN (19:59)
[2020-04-04] MEDS: traZODone HCl 50 MG TAB PO SCH (21:03)
[2020-04-04] MEDS: Lidocaine 5% Patch TD SCH (21:08)
[2020-04-05] MEDS: Acetaminophen/Codeine 30-300mg Tablet PO PRN ×2 (02:39→10:04)
[2020-04-05] MEDS: Ibuprofen 800 MG TAB PO SCH ×2 (06:05→13:54)
[2020-04-05 06:42] VITALS: BP 102/65; TEMP 97.8
[2020-04-05] MEDS: Senokot 8.6 MG TAB PO SCH (08:00)
[2020-04-05] MEDS: Diazepam 5 MG TAB PO SCH (08:00)
[2020-04-05] MEDS: Cyclobenzaprine 10 MG TAB PO PRN (08:00)
[2020-04-05] MEDS: Ascorbic Acid 500 mg Chewable Tablet PO SCH (08:00)
[2020-04-05] MEDS: levETIRAcetam 500 MG TAB PO SCH (08:01)
[2020-04-05] MEDS: Nitrofurantoin Macrocrystal 50 MG CAP PO SCH (08:01)
[2020-04-05] MEDS: Ferrous Sulfate 325 MG TAB PO SCH (08:01)
[2020-04-05] MEDS: Enoxaparin Sodium 40 MG/0.4 ML SYRINGE SC SCH (08:01)
[2020-04-05] MEDS: Lidocaine Patch Removal TOP SCH (08:02)
[2020-04-05] MEDS: Nystatin Cream 15 GM TUBE TOP SCH (08:02)
[2020-04-05] MEDS: Polyethylene Glycol 3350 17 GM Packet PO SCH (08:02)
[2020-04-05] MEDS: ATOMOXETINE HCL 40 MG PO SCH (08:03)
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
== END 2020-04-05 14:40 | disposition home health service (06) | DRG 948 ==
LOC: MADMS 14:35
PROVIDERS: ADMIT Family Medicine; ATTEND Family Medicine
DX: R53.1 Weakness (principal); S06.0X9A Concussion with loss of consciousness of unspecified duration, initial encounter; D62 Acute posthemorrhagic anemia; R53.81 Other malaise; Z47.89 Encounter for other orthopedic aftercare; S30.0XXA Contusion of lower back and pelvis, initial encounter; R26.9 Unspecified abnormalities of gait and mobility; Z20.828 Contact with and (suspected) exposure to other viral communicable diseases; F32.9 Major depressive disorder, single episode, unspecified; F41.9 Anxiety disorder, unspecified; F90.9 Attention-deficit hyperactivity disorder, unspecified type; F51.04 Psychophysiologic insomnia; K59.00 Constipation, unspecified; S32.392D Other fracture of left ilium, subsequent encounter for fracture with routine healing; S72.392D Other fracture of shaft of left femur, subsequent encounter for closed fracture with routine healing; S52.202E Unspecified fracture of shaft of left ulna, subsequent encounter for open fracture type I or II with routine healing; S52.92XE Unspecified fracture of left forearm, subsequent encounter for open fracture type I or II with routine healing; Z87.440 Personal history of urinary (tract) infections; Z88.1 Allergy status to other antibiotic agents; Z88.0 Allergy status to penicillin; Z88.2 Allergy status to sulfonamides; Z88.8 Allergy status to other drugs, medicaments and biological substances
CPT/HCPCS: 36415; 80053; 81001; 82728; 85007; 85014; 85018; 85025; 85027; 85049; 87040; 87480; 87510; 87635; 87660; J1650; J3301; U0003